=== PATIENT | female | born 1960 | race Caucasian/White ===

== ENCOUNTER → 2018-09-16 | Outpatient (CLI) | payer MEDICARE, OTHER ==
[2018-09-16 12:13] LABS: HCT 41.7 % (34.0-46.0); HGB 13.1 gm/dL (11.4-16.0); MCHC 31.4 g/dL (31.0-37.0); MCV 92.4 fL (80.0-100.0); Mean Platelet Volume 7.2; Platelet Count 290 k/uL (150-450); RBC 4.51 m/uL (3.80-5.40); RDW 13.3 % (11.5-15.5); WBC 5.5 k/uL (3.8-10.6)
[2018-09-16 13:30] LABS: Erythrocyte Sedimentation Rate 8 mm/hr (0-20)
== END ==
LOC: LABWHC1 11:24
PROVIDERS: ATTEND Otolaryngology
DX: J04.0 Acute laryngitis (principal)
CPT/HCPCS: 36415; 82607; 84443; 85027; 85652; 86038

== ENCOUNTER → 2018-11-15 | Outpatient (CLI) | payer MEDICARE, OTHER ==
[2018-11-11 15:42] VITALS: BMI 34.4
[2018-11-15 11:52] VITALS: BP 131/95; PULSE 80; RESP 16
--- NOTE | 2018-11-15 13:26 | P.PN ---
Subjective Progress Note Date: 11/15/18 Leda is a 58-year-old female presents today for follow-up review. She was last seen in our clinic about 2 and half years ago. She continues to have low back pain. She reports pain along her low back into her lower extremities. She's had a history of back surgery 1992. She reports her pain is on and off throughout the years and is getting worse more recently. Her pain is mostly across the low back and into bilateral upper thighs. She reports bilateral lower extremity weakness which is chronic in nature. 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 She does not exercise. She denies any bowel or bladder incontinence. She denies any numbness or tingling in her feet except with prolonged standing. She denies any cervical pain or any weakness in her upper extremities. She's had injections in the past with good response. She was supposed to have radiofrequency ablations but she refused at that time. Objective - Vital Signs Vital signs: Vital Signs Temp Pulse 80 11/15/18 11:45 Resp 16 11/15/18 11:45 BP 131/95 11/15/18 11:45 Pulse Ox 98 11/15/18 11:45 - Exam General: Awake and alert oriented 3 no distress Respiratory exam: No audible wheezing no accessory muscle usage Cardiovascular exam: regular rate, palpable bilateral pulses, no lower extremity edema Abdominal exam: No distention nontender to palpation Cervical spine: Normal alignment, Spurling's negative, facet loading negative Lumbar spine: Loss of lumbar lordosis, surgical scar well-healed, normal alignment, tender to palpation over bilateral paraspinal muscles, facet loading is positive bilaterally. Straight leg raise is positive bilateral. Strength is 4 out of 5 in bilateral lower extremities with decreased muscle mass and muscle bulk bilateral Sacroiliac joints: Nontender to palpation, ARIA is negative, Gaenselon negative Neuro exam: Normal sensation in bilateral upper extremities, deep tendon reflexes are 2+ bilateral upper extremities. Normal sensation in bilateral lower extremities. Deep tendon reflexes are absent in lower extremities. Randi's is negative. Psych exam: Cooperative, appropriate mood Assessment and Plan Assessment: #1 lumbar radiculopathy #2 lumbar spondylosis without myelopathy Plan: After discussion with the patient and review of her MRI. I discussed that we will would like to try a lumbar epidural steroid injection via the transforaminal route. I believe the L3-L4 level be most appropriate at this time on both sides. I discussed with her the risks benefits and alternatives to the procedures. Patient like to move forward as soon as possible.
== END ==
LOC: PNWHC3 11:40
PROVIDERS: ATTEND Hospitalist
DX: M47.26 Other spondylosis with radiculopathy, lumbar region (principal)
CPT/HCPCS: 99211

== ENCOUNTER 2018-11-28 06:19 | Day surgery (SDC) | payer MEDICARE ==
[2018-11-23 14:15] VITALS: BMI 32.9
[2018-11-28 06:40] VITALS: RESP 18; TEMP 97.5
[2018-11-28] MEDS ORDERED: LIDOCAINE 1% 20 ML VIAL (10MG/ML) FOR IV START INTRADERMA ONE (06:47)
[2018-11-28] MEDS ORDERED: LACTATED RINGERS 1,000 ML IV ONE (06:47)
--- NOTE | 2018-11-28 07:52 | P.PCN ---
Date of Procedure: 11/28/18 Procedure(s) Performed: PREOPERATIVE DIAGNOSIS: Lumbar radiculopathy. Lumbar spondylosis with lumbar facet arthropathy without myelopathy. POSTOPERATIVE DIAGNOSIS: Same as preoperative diagnosis. PROCEDURE 1. Bilateral Transforaminal epidural steroid injection under fluoroscopic guidance at L3-4 level . 2. Lumbar epidurogram : ANESTHESIA: Local with 1% lidocaine 3 ml , moderate sedation with intravenous Versed 1 mg and fentanyle 50 micrograms EBL: Minimal PROCEDURE INDICATION: The patient with low back pain and radiculopathy symptoms unresponsive to conservative treatment. PROCEDURE DESCRIPTION / TECHNIQUE: The patient was seen and identified in the preoperative area. Risks, benefits , complications, and alternatives were discussed with the patient. The patient agreed to proceed with the procedure and signed the consent. IV was started, and vital signs were stable. Patient was taken to the OR and time out was completed. The patient was placed in the prone position on procedure table and a pillow was placed under the abdomen to reduce lumbar lordosis. The lumbosacral area was prepped and draped in the usual sterile fashion. Critical pause was taken. Vital signs were closely monitored during the procedure. Conscious sedation was used during the procedure to decrease patients anxiety. Using oblique fluoroscopy, the chin of the ``Joseph dog at right L3-4 level was identified, and the skin and deeper tissues just below was localized with 1 % lidocaine. Subsequently, a 22-gauge 5 inches spinal needle was advanced under a tunneled view fluoroscopic guidance just underneath the chin of the `` Joseph dog at the right L3-4 . Under lateral fluoroscopy, the needle was then advanced to the posterior border of the L3-4 interforaminal space. After negative aspiration of CSF and blood and with no paresthesias, 1 mL Isovue 200 contrast dye was injected excellent epidurogram and outlining of the nerve root Subsequently, 3 mL of block solution containing 40 mg Depo-medrol and 2 mL of Lidocaine 1% was injected. Needle was removed and the same procedure was repeated at the left L3-4 At the end of the procedure, skin was cleansed, and bandages were applied. COMPLICATIONS:none DISPOSITION / PLANS: The patient was placed in a supine position and transferred to the recovery area in a stable condition for observation. There was no evidence of lower extremity motor or sensory deficit after the procedure. Patient was discharged from the recovery room after meeting discharge criteria. Home discharge instructions were given to the patient by the staff. The patient was reexamined prior to discharge.
[2018-11-28] MEDS ORDERED: IV FLUID CONTINUATION 1,000 ML IV ONE (07:55)
--- NOTE | 2018-11-28 08:09 | FL ---
Fluoroscopy HISTORY: Pain 8 seconds fluoroscopy time supplied to the referring clinician. 2 intraoperative C-arm images docume nt the procedure. See dictated report from anesthesia.
[2018-11-28 08:17] VITALS: BP 102/64; PULSE 78
== END 2018-11-28 08:37 | disposition home or self-care (01) ==
LOC: ORPAIN 06:19
PROVIDERS: ATTEND Specialist
DX: M47.26 Other spondylosis with radiculopathy, lumbar region (principal); Z98.1 Arthrodesis status; Z90.710 Acquired absence of both cervix and uterus; Z88.1 Allergy status to other antibiotic agents; Z88.8 Allergy status to other drugs, medicaments and biological substances
CPT/HCPCS: 64483; J2250; J1030; J3010; Q9966; 99152

== ENCOUNTER 2018-12-12 07:48 | Day surgery (SDC) | payer MEDICARE ==
[2018-12-06 11:18] VITALS: BMI 34.4
[2018-12-12 08:12] VITALS: RESP 16; TEMP 97.6
[2018-12-12] MEDS ORDERED: LACTATED RINGERS 1,000 ML IV ONE ×2 (08:16)
[2018-12-12] MEDS ORDERED: LIDOCAINE 1% 20 ML VIAL (10MG/ML) FOR IV START INTRADERMA ONE (08:17)
--- NOTE | 2018-12-12 08:20 | P.PCN ---
Date of Procedure: 12/12/18 Description of Procedure: PREOPERATIVE DIAGNOSIS: Lumbar radiculopathy. Lumbar spondylosis with lumbar facet arthropathy without myelopathy. POSTOPERATIVE DIAGNOSIS: Same as preoperative diagnosis. PROCEDURE 1. Bilateral Transforaminal epidural steroid injection under fluoroscopic guidance at L3-4 level . 2. Lumbar epidurogram : ANESTHESIA: Local with 1% lidocaine 3 ml , moderate sedation with intravenous Versed 1 mg and fentanyle 50 micrograms EBL: Minimal PROCEDURE INDICATION: The patient with low back pain and radiculopathy symptoms unresponsive to conservative treatment. PROCEDURE DESCRIPTION / TECHNIQUE: The patient was seen and identified in the preoperative area. Risks, benefits, complications, and alternatives were discussed with the patient. The patient agreed to proceed with the procedure and signed the consent. IV was started, and vital signs were stable. Patient was taken to the OR and time out was completed. The patient was placed in the prone position on procedure table and a pillow was placed under the abdomen to reduce lumbar lordosis. The lumbosacral area was prepped and draped in the usual sterile fashion. Critical pause was taken. Vital signs were closely monitored during the procedure. Conscious sedation was used during the procedure to decrease patients anxiety. Using oblique fluoroscopy, the chin of the ``Joseph dog at right L3-4 level was identified, and the skin and deeper tissues just below was localized with 1% lidocaine. Subsequently, a 22-gauge 5 inches spinal needle was advanced under a tunneled view fluoroscopic guidance just underneath the chin of the ``Joseph dog at the right L3-4 . Under lateral fluoroscopy, the needle was then advanced to the posterior border of the L3-4 interforaminal space. After negative aspiration of CSF and blood and with no paresthesias, 1 mL Isovue 200 contrast dye was injected excellent epidurogram and outlining of the nerve root Subsequently, 6 mL of block solution containing 20 mg dexamethasone and 2 mL of Lidocaine 1%, 2 ML's preservative-free normal saline. was injected. Needle was removed and the same procedure was repeated at the left L3-4 At the end of the procedure, skin was cleansed, and bandages were applied. COMPLICATIONS:none DISPOSITION / PLANS: The patient was placed in a supine position and transferred to the recovery area in a stable condition for observation. There was no evidence of lower extremity motor or sensory deficit after the procedure. Patient was discharged from the recovery room after meeting discharge criteria. Home discharge instructions were given to the patient by the staff. The patient was reexamined prior to discharge. Will present for her third transforaminal epidural steroid injection. PT prescription was given this visit.
--- NOTE | 2018-12-12 08:21 | P.GSHP ---
History of Present Illness H&P Date: 12/12/18 58-year-old woman presenting for bilateral transforaminal epidural steroid injection L3-L4. This is #23. She had relief greater than 50% with the initial 1. She still has some radicular pain down her legs bilaterally. VAS today is a 6 out of 10 in severity. Physical Exam : CVS: Regular rate and rhythm, no peripheral edema Pulmonary: Nonlabored, no wheezing Plan: 1. Transforaminal epidural steroid injection L3-L4 bilateral. 2. PT prescription given. 3. Schedule for third epidural injection in 4-6 weeks. Past Medical History Past Medical History: Cancer, Hyperlipidemia, Pneumonia Additional Past Medical History / Comment(s): HX MIGRAINES, LEFT BREAST CA VARICOSE VEINS RT LEG, pneumonia 2017, chronic lower back pain. Current rash on right lower leg. History of Any Multi-Drug Resistant Organisms: None Reported Past Surgical History: Back Surgery, Breast Surgery, Hysterectomy Additional Past Surgical History / Comment(s): LEFT MASTECTOMY 2012 WITH RADIATION. PAIN CLINIC- INJECTIONS Past Anesthesia/Blood Transfusion Reactions: Motion Sickness Additional Past Anesthesia/Blood Transfusion Reaction / Comment(s): . Smoking Status: Never smoker - Past Family History Father Family Medical History: No Reported History Additional Family Medical History / Comment(s): HYPOTHYROID FAMILY HX Mother Family Medical History: No Reported History Medications and Allergies Home Medications Medication Instructions Recorded Confirmed Type SUMAtriptan SUCCINATE [Imitrex] 100 mg PO DIRECTED PRN 01/07/15 12/12/18 History Topiramate [Topamax] 50 mg PO BID 01/07/15 12/12/18 History buPROPion SR [Wellbutrin SR] 150 mg PO DAILY 01/07/15 12/12/18 History Flaxseed Oil 1,000 mg PO DAILY 10/21/18 12/12/18 History Allergy Injection 1 dose SQ Q30D 11/23/18 12/12/18 History Allergy Injection 1 dose SQ WE 11/23/18 12/12/18 History Antianxiety Med (Unknown Name) 1 tab PO DAILY 11/23/18 12/12/18 History Antianxiety Med (Unknown Name) 1 tab PO HS 11/23/18 12/12/18 History Montelukast [Singulair] 10 mg PO HS 11/23/18 12/12/18 History Water Pill (Unknown Name) 10 mg PO DAILY 11/23/18 12/12/18 History Allergies Allergy/AdvReac Type Severity Reaction Status Date / Time Quinolones Allergy Severe Rash/Hives Verified 12/06/18 10:58 alprazolam [From Xanax] Allergy MAKES VERY Verified 12/06/18 10:58 HYPER codeine AdvReac Intermediate Nausea & Verified 12/06/18 10:58 Vomiting Surgical - Exam Vital Signs Temp Pulse Resp BP Pulse Ox 97.6 F 79 16 137/82 98 12/12/18 08:06 12/12/18 08:06 12/12/18 08:06 12/12/18 08:06 12/12/18 08:06
[2018-12-12] MEDS ORDERED: SODIUM CHLORIDE 0.9% 500 ML 500 ML IV SCH (08:30)
[2018-12-12] MEDS ORDERED: IV FLUID CONTINUATION 1,000 ML IV ONE (09:21)
[2018-12-12 09:24] VITALS: BP 105/68
[2018-12-12 09:31] VITALS: PULSE 75
--- NOTE | 2018-12-12 09:31 | FL ---
EXAMINATION TYPE: FL guided pain mgmt statistic DATE OF EXAM: 12/12/2018 CLINICAL HISTORY: Low back pain. TECHNIQUE: Fluoroscopy. COMPARISON: None. FINDINGS: Fluoroscopic guidance was provided during pain relief procedure performed by Dr. Caal . A total of 14 seconds of fluoroscopic time was utilized during the procedure and two spot images are acquired. Images acquired shows needle localization of the lumbar spine. IMPRESSION: As Above.
== END 2018-12-12 10:29 | disposition home or self-care (01) ==
LOC: ORPAIN 07:48
PROVIDERS: ATTEND Anesthesiology
DX: M47.26 Other spondylosis with radiculopathy, lumbar region (principal); M54.5 Low back pain; E78.5 Hyperlipidemia, unspecified; R21 Rash and other nonspecific skin eruption; G43.909 Migraine, unspecified, not intractable, without status migrainosus; Z85.3 Personal history of malignant neoplasm of breast; Z87.01 Personal history of pneumonia (recurrent); Z92.3 Personal history of irradiation; Z90.12 Acquired absence of left breast and nipple; Z79.899 Other long term (current) drug therapy; Z88.5 Allergy status to narcotic agent; Z88.8 Allergy status to other drugs, medicaments and biological substances
CPT/HCPCS: 64483; J2250; J1100; J3010; Q9966

== ENCOUNTER → 2018-12-26 | Day surgery (SDC) | payer MEDICARE ==
[2018-12-22 10:42] VITALS: BMI 34.4
[~2018-12-26] MED LIST: IV FLUID CONTINUATION 1,000 ML IV ONE; LACTATED RINGERS 1,000 ML IV ONE; LIDOCAINE 1% 20 ML VIAL (10MG/ML) FOR IV START SQ ONE
[2018-12-26 10:04] VITALS: RESP 16; TEMP 98
--- NOTE | 2018-12-26 10:27 | P.PCN ---
Date of Procedure: 12/26/18 Operative Findings: DESCRIPTION OF PROCEDURE(S): PREOPERATIVE DIAGNOSIS: Lumbar radiculopathy POSTOPERATIVE DIAGNOSIS: Lumbar radiculopathy PROCEDURE 1. Transforaminal epidural steroid injection under fluoroscopic guidance bilateral L3-L4 2. Lumbar epidurogram ANESTHESIA: Local with 1% lidocaine 5 ml ; Versed and fentanyl PROCEDURE INDICATION: The patient with low back pain and radiculopathy symptoms unresponsive to conservative treatment. PROCEDURE DESCRIPTION / TECHNIQUE: The patient was seen and identified in the preoperative area. Risks, benefits, complications, and alternatives were discussed with the patient. The patient agreed to proceed with the procedure and signed the consent. IV was started, and vital signs were stable. Patient was taken to the OR and time out was completed. The patient was placed in the prone position on procedure table and a pillow was placed under the abdomen to reduce lumbar lordosis. The lumbosacral area was prepped and draped in the usual sterile fashion. Vital signs were closely monitored during the procedure. Conscious sedation was used. Using oblique fluoroscopy, the chin of the ``Joseph dog at the pedicle and the skin and deeper tissues just below was localized with 1% lidocaine. Subsequently, a 22-gauge 3.5-inch spinal needle was advanced under a tunneled view fluoroscopic guidance just underneath the chin of the ``Joseph dog. Under lateral fluoroscopy, the needle was then advanced to the posterior border interforaminal space. After negative aspiration of CSF and blood and with no paresthesias, 1 mL of Omnipaque-240 contrast dye was injected excellent epidurogram. 2 ML of 0.25% ropivacaine with dexamethasone 5 ML's at each level was injected after negative aspiration. Needle was removed. COMPLICATIONS: None COMMENTS: DISPOSITION / PLANS: The patient was placed in a supine position and transferred to the recovery area in a stable condition for observation. There was no evidence of lower extremity motor or sensory deficit after the procedure. Patient was discharged from the recovery room after meeting discharge criteria. Home discharge instructions were given to the patient by the staff. F/U clinic in 6-8 weeks after PT.
[2018-12-26 10:58] VITALS: BP 105/72; PULSE 77
--- NOTE | 2018-12-26 11:48 | FL ---
Fluoroscopy HISTORY: Pain 17 seconds fluoroscopy time supplied to the referring clinician. 2 intraoperative C-arm images docum ent the procedure. See dictated report from anesthesia.
== END | disposition home or self-care (01) ==
LOC: ORPAIN 09:49
PROVIDERS: ATTEND Hospitalist
DX: M54.16 Radiculopathy, lumbar region (principal); G89.29 Other chronic pain; E78.5 Hyperlipidemia, unspecified; Z85.3 Personal history of malignant neoplasm of breast; Z87.01 Personal history of pneumonia (recurrent); Z90.12 Acquired absence of left breast and nipple; Z92.3 Personal history of irradiation; Z79.899 Other long term (current) drug therapy; Z88.5 Allergy status to narcotic agent; Z88.8 Allergy status to other drugs, medicaments and biological substances; Z88.1 Allergy status to other antibiotic agents
CPT/HCPCS: 64483; J2250; J1100; J3010; Q9966

== ENCOUNTER → 2018-12-29 | Outpatient (CLI) | payer MEDICARE ==
--- NOTE | 2018-12-29 13:56 | P.PAINPG ---
Subjective Progress Note Date: 12/29/18 There is a very pleasant 58-year-old female presents today for follow-up. She is status post 2 transforaminal epidurals at the L3 4 levels. She continues to complain of back pain and radicular symptoms down her legs. She reports that the epidurals significantly improved her pain but did not last more than a couple weeks. She complains of back pain is shooting down her legs is worse with standing for long. The time and with sitting for long periods of time. She reports after she stands for long or walks for long she has increase in radicular symptoms. As for her back pain she feels achy dull pain throughout the back that's aggravated by working. She reports she is walking a lot. She has been to physical therapy 2 times already. She is not using any medications except occasional Tylenol. She feels that the numbness in her legs does bother her but it's not causing pain the majority of the pain is in the low back. Objective - Vital Signs Vital signs: Intake & Output 12/28/18 12/29/18 12/29/18 18:59 06:59 18:59 Weight 84.822 kg - Exam General: Awake and alert oriented 3 no distress Respiratory exam: No audible wheezing no accessory muscle usage Cardiovascular exam: regular rate, palpable bilateral pulses, no lower extremity edema Abdominal exam: No distention nontender to palpation Cervical spine: Normal alignment, Spurling's negative, facet loading negative Lumbar spine: Loss of lumbar lordosis, normal alignment, tender to palpation over bilateral paraspinal muscles, facet loading is positive bilaterally. Straight leg raise is positive bilateral Sacroiliac joints: Nontender to palpation, ARIA is negative, Gaenselon negative Neuro exam: Normal sensation in bilateral upper extremities, deep tendon reflexes are 2+ bilateral upper extremities. Normal sensation in bilateral lower extremities. Deep tendon reflexes are 1+ in lower extremities Psych exam: Cooperative, appropriate mood Assessment and Plan Plan: After discussing with the patient and going over options I do believe that she had some relief from the epidurals but we will hold off on doing a third one at this time. I do feel that she'll benefit from low-dose gabapentin as well as Mobic as needed. I did discuss the medications. Advise her to take the gabapentin and a tapered dose starting with taking one pill every night for a week and then increasing to another pill every week until she is taking 3 times per day. I advised her to continue physical therapy and and really work with them to try to increase her strength. We agreed that she will follow-up in one month's time to see how she is doing. PQRS Measure Charge Sheet Measure #130: Documentation of Current Meds in Medical Chart: Patient's medications documented in chart Measure #226: Tobacco Use: Screen & Cessation Intervention: Pt not a tobacco user Measure #111: Pneumonia Vaccination: Pneumococcal vaccine administered or previously received Measure #47: Advance Care Plan: Advance care planning discussed & documented, pt chose/unable to give Measure #412: Opioid Treatment Agreement: Documented signed opioid trtmnt agreemnt min once during opioid trtmnt Measure #408: Opioid Therapy Follow-up Evaluation: Patient had f/u eval minimum every 3 months during opioid therapy Measure #317: Preventitive Care & Scrn High Bld Press & F/U: Normal blood pressure, f/u not required Measure #128: Body Mass Index (BMI) Screening & Follow-up: BMI documented ABOVE normal parameters - f/u documented Measure #131: Pain Assessment & Follow-up: Pain positive & plan documented Measure #431: Unhealthy Alcohol Use Preventative Care & Scrn: Patient not identified as an unhealthy alcohol user PQRS Narrative: Smoking Status Never smoker Do You Want the Pneumonia Yes Vaccine AT THIS TIME? Pain Intensity [Lower Back] 6 Scale Used Numeric (1 - 10) Hx Alcohol Use (MH) Yes: occasional Home Medications: Ambulatory Orders SUMAtriptan SUCCINATE [Imitrex] 100 mg PO DIRECTED PRN 01/07/15 Topiramate [Topamax] 50 mg PO BID 01/07/15 buPROPion SR [Wellbutrin SR] 150 mg PO DAILY 01/07/15 Flaxseed Oil 1,000 mg PO DAILY 10/21/18 Allergy Injection 1 dose SQ Q30D 11/23/18 Allergy Injection 1 dose SQ WE 11/23/18 Montelukast [Singulair] 10 mg PO HS 11/23/18 DULoxetine HCL [Cymbalta] 60 mg PO HS 12/22/18 Naproxen [Naprosyn] 500 mg PO Q12HR PRN 12/22/18 Torsemide [Demadex] 10 mg PO DAILY 12/22/18 Triamcinolone 0.1% Ointment [Kenalog 0.1% Ointment] 1 applic TOPICAL BID PRN 12/22/18 tiZANidine [Zanaflex] 2 mg PO Q8HR PRN 12/22/18 Controlled Substance Measures - Controlled Substance Measures Is patient prescribed a controlled substance at discharge?: Yes When asked, does pt state using other controlled substances?: No If prescribed controlled substance>3 days was MAPS reviewed?: Yes If Rx opioid, was Start Talking consent form obtained?: Yes If opioid is for acute pain is fill amount 7 days or less?: No Was information provided regarding opioid addiction?: No
== END | disposition home or self-care (01) ==
LOC: PNWHC3 12:04
PROVIDERS: ATTEND Hospitalist
DX: M54.9 Dorsalgia, unspecified (principal); Z79.891 Long term (current) use of opiate analgesic; Z98.890 Other specified postprocedural states
CPT/HCPCS: 99211

== ENCOUNTER → 2019-02-13 | Outpatient (CLI) | payer MEDICARE, OTHER ==
[2019-02-13 14:57] VITALS: BP 138/82; PULSE 86; RESP 16
--- NOTE | 2019-02-13 15:27 | P.PAINPG ---
Subjective Progress Note Date: 02/13/19 this is a follow-up visit for this 58 years old female with a chronic history of severe low back pain with radiation to the lower extremity bilaterally, patient had lumbar laminectomy surgery done several years ago, and currently she is complaining of sever low back pain, the pain is constant and increases with any activity, interfering with her quality of life, recently with done transforaminal epidural steroid injection at L3 4 bilaterally ,x3 , patient had no benefit from it, she denies any motor or sensory deficit she denies any change in bowel movement or urination, no fever or night sweats Objective - Vital Signs Vital signs: Vital Signs Temp Pulse 86 02/13/19 14:47 Resp 16 02/13/19 14:47 BP 138/82 02/13/19 14:47 Pulse Ox Intake & Output 02/12/19 02/13/19 02/13/19 18:59 06:59 18:59 Weight 83.915 kg - Exam Physical Examinations : -Constitutiona : Cooperative , not in acute distress . -HEENT : nech ; supple , no Lymphadenopathy , normal thyroid size . eyes : no ptosis , no icterus, no photophobia .. - neurologic : Cranial nerve II to XII intact , no focal neurological deffecit . -psychatric : alert , oriented X 3 , appropriate affect , intact judgment and insight . -Lymphatic : no Lymphadenopathy . - musculoskeltal : Lumber spine moter stegnth lower extremities ,thigh and legs 5/5 Right side , 5/5 Left side deep tendon reflexes : normal Knee Jerk , normal ankle Jerk positive lumber facet Loading Test Range of motion of the lumbar spine Flexion 30 degrees, extension 10 degrees strait leg raising test , positive at 30 degree Fabere test positive RT and positive LT . Sever tenderness over the Sacroiliac joint on the R and L sides Gaenslen test positive bilaterally. Seated flexion test positive bilaterally. Assessment and Plan Plan: assessment and plan= failed back surgery syndrome and lumbar area. Lumbar radiculopathy. Lumbar spondylosis with lumbar facet arthropathy. Bilateral sacroiliitis. Patient had no benefit from transforaminal epidural steroid injection at L3 4 . Currently patient had symptoms of facetogenic component of back pain, we will schedule patient to have diagnostic medial branch block lumbar area at L3 4, L4 5, L5-S1, benefits positive vertigo RFA patient given prescription refill for Neurontin 300 mg 3 times a day and Mobic 7.5 mg daily Time with Patient: Less than 30 PQRS Measure Charge Sheet Measure #130: Documentation of Current Meds in Medical Chart: Patient's medications documented in chart Measure #226: Tobacco Use: Screen & Cessation Intervention: Pt not a tobacco user Measure #111: Pneumonia Vaccination: Pneumococcal vaccine administered or previously received Measure #47: Advance Care Plan: Advance care planning discussed & documented, pt chose/unable to give Measure #412: Opioid Treatment Agreement: Documented signed opioid trtmnt agreemnt min once during opioid trtmnt Measure #408: Opioid Therapy Follow-up Evaluation: Patient had f/u eval minimum every 3 months during opioid therapy Measure #317: Preventitive Care & Scrn High Bld Press & F/U: Normal blood pressure, f/u not required Measure #128: Body Mass Index (BMI) Screening & Follow-up: BMI documented ABOVE normal parameters - f/u documented Measure #131: Pain Assessment & Follow-up: Pain positive & plan documented Measure #431: Unhealthy Alcohol Use Preventative Care & Scrn: Patient not identified as an unhealthy alcohol user PQRS Narrative: Smoking Status Never smoker Do You Want the Pneumonia No Vaccine AT THIS TIME? Narcotic Agreement Date Signed 12/29/18 Blood Pressure 138/82 Pain Intensity [Bilateral 6 Lower Back] Scale Used Numeric (1 - 10) Hx Alcohol Use (MH) Yes: occasional Home Medications: Ambulatory Orders SUMAtriptan SUCCINATE [Imitrex] 100 mg PO DIRECTED PRN 01/07/15 Topiramate [Topamax] 50 mg PO BID 01/07/15 Flaxseed Oil 1,000 mg PO DAILY 10/21/18 Allergy Injection 1 dose SQ Q30D 11/23/18 Allergy Injection 1 dose SQ WE 11/23/18 Montelukast [Singulair] 10 mg PO HS 11/23/18 DULoxetine HCL [Cymbalta] 60 mg PO HS 12/22/18 Naproxen [Naprosyn] 500 mg PO Q12HR PRN 12/22/18 Torsemide [Demadex] 10 mg PO DAILY 12/22/18 Triamcinolone 0.1% Ointment [Kenalog 0.1% Ointment] 1 applic TOPICAL BID PRN 12/22/18 tiZANidine [Zanaflex] 2 mg PO Q8HR PRN 12/22/18 Gabapentin [Neurontin] 300 mg PO TID 02/13/19 Meloxicam [Mobic] 7.5 mg PO DAILY 02/13/19 buPROPion HCL [Wellbutrin XL] 300 mg PO DAILY 02/13/19 Controlled Substance Measures - Controlled Substance Measures Is patient prescribed a controlled substance at discharge?: Yes When asked, does pt state using other controlled substances?: No If prescribed controlled substance>3 days was MAPS reviewed?: Yes If Rx opioid, was Start Talking consent form obtained?: Yes If opioid is for acute pain is fill amount 7 days or less?: No Was information provided regarding opioid addiction?: Yes
== END ==
LOC: PNWHC3 13:52
PROVIDERS: ATTEND Specialist
DX: M47.26 Other spondylosis with radiculopathy, lumbar region (principal); M46.96 Unspecified inflammatory spondylopathy, lumbar region; M46.1 Sacroiliitis, not elsewhere classified; M96.1 Postlaminectomy syndrome, not elsewhere classified; Z79.891 Long term (current) use of opiate analgesic; Z79.899 Other long term (current) drug therapy
CPT/HCPCS: 99211

== ENCOUNTER 2019-02-21 07:22 | Day surgery (SDC) | payer MEDICARE, OTHER ==
[2019-02-15 14:55] VITALS: BMI 34.4
[~2019-02-21 07:22] MED LIST changes: -IV FLUID CONTINUATION 1,000 ML IV ONE; -LACTATED RINGERS 1,000 ML IV ONE; +LACTATED RINGERS 1,000 ML IV SCH; -LIDOCAINE 1% 20 ML VIAL (10MG/ML) FOR IV START SQ ONE
[2019-02-21 07:53] VITALS: TEMP 98.2
[2019-02-21] MEDS ORDERED: LIDOCAINE 1% 20 ML VIAL (10MG/ML) FOR IV START INTRADERMA ONE (07:59)
--- NOTE | 2019-02-21 08:55 | P.PCN ---
Date of Procedure: 02/21/19 Surgeon: Bert León Pathology: none sent Condition: stable Disposition: PACU Description of Procedure: PREOPERATIVE DIAGNOSIS : 1- Lumbar spondylosis with Facet Arthropathy without myelopathy . 2- Lumber degenerative disc disease 3-lumbar postlaminectomy and fusion pain syndrome POSTOPERATIVE DIAGNOSIS: Same as above PROCEDURE: Diagnostic bilateral L2-3, L3 -4 , L4 -5 medial branch block under fluoroscopy ANESTHESIA: Local with 1% lidocaine; IV moderate conscious sedation with Versed 2 mg . EBL: Negligible COMPLICATION: None. PROCEDURE INDICATION: Chronic low back pain secondary to Facet arthropathy unresponsive to conservative treatment. PROCEDURE DESCRIPTION: the patient was seen and identified in the preop holding area , risks and benefits and possible complications of the procedure and alternatives were discussed with the patient, and the patient agreed to proceed with the procedure and signed the consent. IV was started and vital signs monitored during the procedure and fluoroscopy was used to maximize the benefit and accuracy of the needle placement, sedation was given to decrease patient anxiety, patient was taken to the procedure room and placed in prone position vital signs monitored. The patient was brought into the procedure room and placed in prone position. Skin was prepped with Chloraprep and draped in a sterile manner. Lidocaine 1% was used to numb the skin up at the target points that were chosen as follows: The L5-S1 level was not done due to the patient's lumbar fusion at this level. For the L2, L3 and L4 medial branches the target points were the connection between the transverse process and the superior to go process of L3, L4 and L5 respectively on the oblique views of fluoroscopy. I used 22-gauge 3-1/2 inch Quincke spinal needles for this procedure and after contacting bone at the target points mentioned above I injected 1 mL of a mixture of Kenalog 40 mg +5 MLS of Marcaine 0.5% PF . Patient tolerated procedure well. At the end of the procedure the needles removed and a bandage applied after the skin was cleaned the cleaning solution. patient was then taken to the recovery room in stable condition and monitored in the recovery room for 20-30 minutes and discharged home in stable condition after discharge criteria met .
[2019-02-21] MEDS ORDERED: IV FLUID CONTINUATION 750 ML IV ONE (08:59)
[2019-02-21 09:01] VITALS: RESP 18
[2019-02-21] MEDS ORDERED: fentaNYL (PF) 50 MCG/ML 2 ML AMP IV ONE (09:07)
[2019-02-21 09:32] VITALS: BP 120/64; PULSE 74
--- NOTE | 2019-02-21 09:37 | FL ---
EXAMINATION TYPE: FL guided pain mgmt statistic DATE OF EXAM: 02/21/2019 CLINICAL HISTORY: Low back pain. TECHNIQUE: Fluoroscopy. COMPARISON: None. FINDINGS: Fluoroscopic guidance was provided during pain relief procedure performed by Dr. León . A total of 9 seconds of fluoroscopic time was utilized during the procedure and two spot images are acquired. Images acquired shows needle localization at several levels in the lower lumbar spine. IMPRESSION: As Above.
== END 2019-02-21 09:40 | disposition home or self-care (01) ==
LOC: ORPAIN 07:22
PROVIDERS: ATTEND Anesthesiology
DX: G89.29 Other chronic pain (principal); M47.26 Other spondylosis with radiculopathy, lumbar region; M51.16 Intervertebral disc disorders with radiculopathy, lumbar region; M96.1 Postlaminectomy syndrome, not elsewhere classified; M46.1 Sacroiliitis, not elsewhere classified; Z79.1 Long term (current) use of non-steroidal anti-inflammatories (NSAID); Z79.899 Other long term (current) drug therapy; Z78.0 Asymptomatic menopausal state
CPT/HCPCS: 64493; 64494; 64495; J2250; J3301; J3010; 99152

== ENCOUNTER 2019-03-07 08:50 | Day surgery (SDC) | payer MEDICARE, OTHER ==
[2019-03-02 11:12] VITALS: BMI 34.4
[2019-03-07 09:08] VITALS: RESP 18; TEMP 97.8
[2019-03-07] MEDS ORDERED: LIDOCAINE 1% 20 ML VIAL (10MG/ML) FOR IV START INTRADERMA ONE (09:16)
[2019-03-07] MEDS ORDERED: LACTATED RINGERS 1,000 ML IV ONE (09:16)
[2019-03-07] MEDS ORDERED: IV FLUID CONTINUATION 800 ML IV ONE (09:54)
--- NOTE | 2019-03-07 09:55 | FL ---
EXAMINATION TYPE: FL guided pain mgmt statistic DATE OF EXAM: 03/07/2019 CLINICAL HISTORY: Low back pain. TECHNIQUE: Fluoroscopy. COMPARISON: None. FINDINGS: Fluoroscopic guidance was provided during pain relief procedure performed by Dr. Jeter . A total of 2 seconds of fluoroscopic time was utilized during the procedure and single spot fluorosc opic image is acquired. Single image acquired shows needle localization at multiple levels bilateral ly in the mid to lower lumbar spine. IMPRESSION: As Above.
[2019-03-07 10:06] VITALS: BP 110/76; PULSE 73
[2019-03-07] MEDS ORDERED: ONDANSETRON 4 MG/2 ML VIAL IVP ONE (10:12)
--- NOTE | 2019-03-07 15:08 | P.PCN ---
Date of Procedure: 03/07/19 Surgeon: Marshall Jeter Description of Procedure: PREOPERATIVE DIAGNOSIS : Lumbar spondylosis with Facet Arthropathy without myelopathy POSTOPERATIVE DIAGNOSIS: same PROCEDURE: Diagnostic lumbar medial branch block with fluoroscopy at bilateral L3 4, L4 5, L5-S1 ANESTHESIA: Local anesthetic; Versed and fentanyl Surgeon: Marshall Jeter MD PROCEDURE INDICATION: This is a very pleasant 59-year-old woman with a history of intractable low back pain who presents today for bilateral lumbar medial branch nerve blocks PROCEDURE DESCRIPTION: the patient was seen and identified in the preop holding area , risks and benefits and possible complications of the procedure and alternative were discussed with the patient, and the patient agreed to proceed with the procedure and signed the consent IV was started and vital signs monitored during the procedure and fluoroscopy was used to maximize the benefit and accuracy of the needle placement, and sedation was given to decrease patient anxiety, patient was taken to the procedure room and placed in prone position vital signs monitored in the back prepped. Under strict sterile technique using a right oblique fluoroscopy ,the junction of the transverse process and the superior articulating process of the right L3- 4 , L4- 5, and L5-S1 vertebra which corresponding to the fluoroscopy image of the eye of the Joseph dog on the block side for the medial branches and subsequently , after local infiltration of skin and subcutaneous tissues with lidocaine 1% one mL at each level ,then one 25-gauge Quincke-type needles was placed at the junction of the base of the transverse process and the superior articular process at the appropriate level, and the needle was advanced until the periosteum contacted, needle placement confirmed with AP oblique and lateral view and after appropriate needle placement confirmed, and after negative aspiration, 0.5 mL of Marcaine 0.5% mixed with 40 mg depomedrol in divided doses was injected at each level and the needle subsequently removed. This procedure was then repeated on the left side. At the end of the procedure and the needles removed and a bandage applied after the skin was cleaned the cleaning solution patient taken to recovery room in stable condition and monitors in the recovery room for 20-30 minutes and discharged home in stable condition after discharge criteria met and patient will follow up with the pain clinic in 2-4 weeks EBL: Minimal COMPLICATION: None.
== END 2019-03-07 10:29 | disposition home or self-care (01) ==
LOC: ORPAIN 08:50
PROVIDERS: ATTEND Pain Medicine Pain Medicine
DX: M47.816 Spondylosis without myelopathy or radiculopathy, lumbar region (principal); Z79.1 Long term (current) use of non-steroidal anti-inflammatories (NSAID); Z79.891 Long term (current) use of opiate analgesic; Z79.899 Other long term (current) drug therapy
CPT/HCPCS: 64493; 64494; 64495; J2250; J1030; J2405; J3010; Q9966; 99152

== ENCOUNTER 2019-04-04 09:05 | Day surgery (SDC) | payer MEDICARE, OTHER ==
[2019-03-17 13:27] VITALS: BMI 34.4
[2019-04-04 09:22] VITALS: TEMP 97.8
[2019-04-04] MEDS ORDERED: LIDOCAINE 1% 20 ML VIAL (10MG/ML) FOR IV START INTRADERMA ONE (09:27)
--- NOTE | 2019-04-04 10:14 | P.PCN ---
Date of Procedure: 04/04/19 Procedure(s) Performed: PREOPERATIVE DIAGNOSIS: 1-Lumbar Spondylosis with Facet Arthropathy without myelopathy. 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 2-failed back surgery syndrome lumbar area PROCEDURES : Right Radiofrequency thermocoagulation L2-3 , L3-L4, L4-L5, medial branch, with fluoroscopic guidance. ANESTHESIA: Moderate sedation with intravenous versed 2 mg ,and fentaneyl 100 mcg. EBL: Minimal PROCEDURE INDICATION: The patient with low back pain secondary to lumbar facet arthropathy who had more than 50% relief of her pain with previous diagnostic lumbar medial branch block with bupivacaine. PROCEDURE DESCRIPTION / TECHNIQUE: The patient was seen and identified in the preoperative area. Risks, benefits, complications, including but not limited to risk of infection ,bleeding , allergic reactions to the medications and no complete pain releife , and alternatives were discussed with the patient, the patient agreed to proceed with the procedure and signed the consent. IV was started. Vital signs remained stable throughout the procedure. Patient was taken to the OR and time out was completed. The patient was placed in the prone position on the procedure table. The lumber area was prepped and draped in the usual sterile fashion. . Vital signs were closely monitored during the procedure .IV sedation was used during the procedure to decrease patients anxiety. Using AP and then oblique fluoroscopy, the ``eye of the Joseph dog corresponding to the connection between the superior and transverse articular processes of right L3, L4, and L5 were identified, marked, and localized with 1% lidocaine. Subsequently, a 18 -ek radiofrequency cannula with a 10- mm active tip was advanced guided by fluoroscopy to each of the``eyes of the Joseph dog at right L2 , L3, L4 . Each site then underwent sensory testing at 50 Hz and 0 to 1 volt and motor testing at 2.5 Hz and 0 to 3 volt with local stimulation, but no radicular symptoms down the legs. Thereafter the right L2-3 , L3-4, L4-5, sites underwent radiofrequency thermocoagulation at 80 degrees celsius for 90 seconds after injecting 0.5 ml of PF Ropivacaine 1ml, then after the thermocoagulation done , 1 ml of the block solution containing Depo-Medrol 40 mg and 3 ml of Ropivacaine 0.5% was injected at the right L3-4 , L4-5 , and L5-S1, levels after negative aspiration of CSF and blood and with no paresthesias. Cannulas were retracted while injecting lidocaine 1% until the needle is out. At the end of the procedure, the skin was cleansed and bandages were applied. COMPLICATIONS: No acute complications. DISPOSITION / PLANS: The patient was placed in a supine position and transferred to the recovery area in a stable condition for observation and was discharged from the recovery room after meeting discharge criteria. Home discharge instructions given to the patient by the staff. The patient was reexamined prior to discharge. The patient will schedule a follow up in the [facility] in 2-4 weeks. note = patient had a fusion ,and bone graft at L5-S1, for this reason it was not done.
[2019-04-04] MEDS ORDERED: IV FLUID CONTINUATION 1,000 ML IV ONE (10:16)
[2019-04-04 10:56] VITALS: BP 123/78; PULSE 68; RESP 18
--- NOTE | 2019-04-04 11:03 | FL ---
EXAMINATION TYPE: FL guided pain mgmt statistic DATE OF EXAM: 04/04/2019 FLUOROSCOPY Fluoroscopy time of 13 seconds was used during lumbar radiofrequency ablation. 3 image/s document/s the procedure.
== END 2019-04-04 10:56 | disposition home or self-care (01) ==
LOC: ORPAIN 09:05
PROVIDERS: ATTEND Specialist
DX: M47.20 Other spondylosis with radiculopathy, site unspecified (principal); M96.1 Postlaminectomy syndrome, not elsewhere classified; Z98.1 Arthrodesis status; Z88.5 Allergy status to narcotic agent; Z88.8 Allergy status to other drugs, medicaments and biological substances; Z90.710 Acquired absence of both cervix and uterus
CPT/HCPCS: 64635; 64636 ×2; J2250; J1030; J3010; 99152; 99153

== ENCOUNTER 2019-04-18 09:07 | Day surgery (SDC) | payer MEDICARE, OTHER ==
[2019-04-13 12:05] VITALS: BMI 34.4
[2019-04-18 10:59] VITALS: TEMP 98.1
[2019-04-18] MEDS ORDERED: LIDOCAINE 1% 20 ML VIAL (10MG/ML) FOR IV START INTRADERMA ONE (11:07)
[2019-04-18] MEDS ORDERED: IV FLUID CONTINUATION 1,000 ML IV ONE (12:20)
--- NOTE | 2019-04-18 12:24 | P.PCN ---
Date of Procedure: 04/18/19 Procedure(s) Performed: PREOPERATIVE DIAGNOSIS: Lumbar Spondylosis POSTOPERATIVE DIAGNOSIS: Same PROCEDURES: Radiofrequency ablation of the L2, L3, L4 medial branches with fluoroscopic guidance (for facet joints L3-4 and L4-5) on the left side SURGEON: Yg Naidu MD. ANESTHESIA: Lidocaine 1% 5 mL, Moderate sedation with intravenous Versed and fentanyl EBL: Minimal Fluoroscopy was used for the procedure and images were saved in the radiology portion of the chart. PROCEDURE INDICATION: The patient with low back pain secondary to lumbar facet arthropathy who had more than 50% relief of pain with previous diagnostic lumbar medial branch block X2. PROCEDURE DESCRIPTION / TECHNIQUE: The patient was seen and identified in the preoperative area. Risks, benefits, complications, including but not limited to risk of infection ,bleeding , allergic reactions to the medications and incomplete pain relief , and alternatives were discussed with the patient, the patient agreed to proceed with the procedure and signed the consent. IV was started. The operative site was marked. Patient was taken to the OR and time out was completed. The patient was placed in the prone position on the procedure table. The lumbar area was prepped and draped in the usual sterile fashion. . Vital signs were closely monitored during the procedure .IV sedation was used during the procedure to decrease patients anxiety. Using AP and then oblique fluoroscopy, the ``eye of the Joseph dog' corresponding to the connection between the superior and transverse articular processes of the L2, L3, L4 were identified, marked, and localized with 1% lidocaine. Subsequently, an 18 guage[100-mm] radiofrequency cannula with a 10- mm active tip was advanced guided by fluoroscopy to the identified target at each site. Needle positioning was confirmed on AP, oblique and lateral fluoroscopy. Motor testing at 2.5 Hz was done with paraspinal muscle stimulation only, and no radicular symptoms down the legs. Then 1 mL of 4% lidocaine was injected in each site. Radiofrequency thermocoagulation at 80 degrees celsius for 90 seconds was then performed. [place] were removed. Sterile dressings were applied. COMPLICATIONS: No acute complications. DISPOSITION / PLANS: The patient was placed in a supine position and transferred to the recovery area in a stable condition for observation and was discharged from the recovery room after meeting discharge criteria. Home discharge instructions given to the patient by the staff. The patient will follow up in clinic in 4 weeks.
[2019-04-18 12:28] VITALS: RESP 15
[2019-04-18 12:45] VITALS: BP 116/55; PULSE 72
--- NOTE | 2019-04-18 13:55 | FL ---
EXAMINATION TYPE: FL guided pain mgmt statistic DATE OF EXAM: 04/18/2019 CLINICAL HISTORY: Low back pain. TECHNIQUE: Fluoroscopy. COMPARISON: None. FINDINGS: Fluoroscopic guidance was provided during pain relief procedure performed by Dr. Naidu. A t otal of 30 seconds of fluoroscopic time was utilized during the procedure and 9 spot images are acqui red. Images acquired shows needle localization at multiple levels in the lumbar spine. IMPRESSION: As Above.
== END 2019-04-18 12:51 | disposition home or self-care (01) ==
LOC: ORPAIN 09:07
PROVIDERS: ATTEND Anesthesiology
DX: M47.816 Spondylosis without myelopathy or radiculopathy, lumbar region (principal)
CPT/HCPCS: 64635; 64636; J2250; J3010; 99152; 99153

== ENCOUNTER → 2019-05-16 | Outpatient (CLI) | payer MEDICARE, OTHER ==
[2019-05-16 12:05] VITALS: BP 116/83; RESP 16
--- NOTE | 2019-05-17 08:57 | P.PAINPG ---
Subjective Progress Note Date: 05/16/19 this is a follow-up visit for this 58 years old female with a chronic history of severe low back pain with radiation to the lower extremity bilaterally, she is diagnosed with failed back surgery syndrome and lumbar area, and lumbar spondylosis with lumbar facet arthropathy , recently we have done radiofrequency ablation of the medial branch lumbar area at L2, L3, L4, (she had fusion at L5- S1 ) , [facility] complaining of severe pain and bilateral buttock pain, increased with any activity, she denies any motor or sensory deficit she denies any change in bowel movement or urination, no fever or night sweats Physical Examinations : -Constitutiona : Cooperative , not in acute distress . -HEENT : nech ; supple , no Lymphadenopathy , normal thyroid size . eyes : no ptosis , no icterus, no photophobia .. - neurologic : Cranial nerve II to XII intact , no focal neurological deffecit . -psychatric : alert , oriented X 3 , appropriate affect , intact judgment and insight . -Lymphatic : no Lymphadenopathy . - musculoskeltal : Lumber spine moter stegnth lower extremities ,thigh and legs 5/5 Right side , 5/5 Left side deep tendon reflexes : normal Knee Jerk , normal ankle Jerk positive lumber facet Loading Test Range of motion of the lumbar spine Flexion 30 degrees, extension 10 degrees strait leg raising test , positive at 30 degree Fabere test positive RT and positive LT . Sever tenderness over the Sacroiliac joint on the R and L sides Ga[place] test positive bilaterally. Seated flexion test positive bilaterally. assessment and plan= failed back surgery syndrome and lumbar area. Lumbar radiculopathy. Lumbar spondylosis with lumbar facet arthropathy. Bilateral sacroiliitis. Status post radiofrequency ablation of the medial branch lumbar area at L2, L3 ,L4 bilaterally Currently most of the pain is coming from the sacroiliitis patient could benefit from bilateral sacroiliac joint steroid injections under fluoroscopy guidance, procedure risk and benefits and alternatives discussed with the patient she agreed with the procedure patient given prescription refill for Neurontin 300 mg 3 times a day and Mobic 7.5 mg day Objective - Vital Signs Vital signs: Vital Signs Temp Pulse Resp 16 05/16/19 11:40 BP 116/83 05/16/19 11:40 Pulse Ox Intake & Output 05/16/19 05/17/19 05/17/19 18:59 06:59 18:59 Weight 84.822 kg PQRS Measure Charge Sheet Measure #130: Documentation of Current Meds in Medical Chart: Patient's medications documented in chart Measure #226: Tobacco Use: Screen & Cessation Intervention: Pt not a tobacco user Measure #111: Pneumonia Vaccination: Pneumococcal vaccine administered or previously received Measure #47: Advance Care Plan: Advance care planning discussed & documented, pt chose/unable to give Measure #412: Opioid Treatment Agreement: Documented signed opioid trtmnt agreemnt min once during opioid trtmnt Measure #408: Opioid Therapy Follow-up Evaluation: Patient had f/u eval minimum every 3 months during opioid therapy Measure #317: Preventitive Care & Scrn High Bld Press & F/U: Normal blood pressure, f/u not required Measure #128: Body Mass Index (BMI) Screening & Follow-up: BMI documented ABOVE normal parameters - f/u documented Measure #131: Pain Assessment & Follow-up: Pain positive & plan documented, Follow-up scheduled Measure #431: Unhealthy Alcohol Use Preventative Care & Scrn: Patient not identified as an unhealthy alcohol user PQRS Narrative: Smoking Status Never smoker Narcotic Agreement Date Signed 12/29/18 Blood Pressure 116/83 Pain Intensity [Bilateral 8 Lower Back] Scale Used Numeric (1 - 10) Hx Alcohol Use (MH) Yes: occasional Home Medications: Ambulatory Orders SUMAtriptan SUCCINATE [Imitrex] 100 mg PO BID PRN 01/07/15 Topiramate [Topamax] 50 mg PO BID 01/07/15 Flaxseed Oil 1,000 mg PO DAILY 10/21/18 Allergy Injection 1 dose SQ Q30D 11/23/18 Allergy Injection 1 dose SQ WE 11/23/18 Montelukast [Singulair] 10 mg PO HS 11/23/18 DULoxetine HCL [Cymbalta] 60 mg PO HS 12/22/18 Torsemide [Demadex] 10 mg PO DAILY 12/22/18 Triamcinolone 0.1% Ointment [Kenalog 0.1% Ointment] 1 applic TOPICAL BID PRN 12/22/18 tiZANidine [Zanaflex] 2 mg PO Q8HR PRN 12/22/18 Gabapentin [Neurontin] 300 mg PO TID 02/13/19 Meloxicam [Mobic] 7.5 mg PO DAILY 02/13/19 buPROPion HCL [Wellbutrin XL] 300 mg PO DAILY 02/13/19 Meloxicam [Mobic] 1 tab PO DAILY 05/16/19 Controlled Substance Measures - Controlled Substance Measures Is patient prescribed a controlled substance at discharge?: Yes When asked, does pt state using other controlled substances?: No If prescribed controlled substance>3 days was MAPS reviewed?: Yes If Rx opioid, was Start Talking consent form obtained?: Yes If opioid is for acute pain is fill amount 7 days or less?: No Was information provided regarding opioid addiction?: Yes
== END | disposition home or self-care (01) ==
LOC: PNWHC3 11:34
PROVIDERS: ATTEND Specialist
DX: G89.29 Other chronic pain (principal); M96.1 Postlaminectomy syndrome, not elsewhere classified; M47.26 Other spondylosis with radiculopathy, lumbar region; M46.96 Unspecified inflammatory spondylopathy, lumbar region; M46.1 Sacroiliitis, not elsewhere classified; Z98.1 Arthrodesis status; Z98.890 Other specified postprocedural states; Z79.1 Long term (current) use of non-steroidal anti-inflammatories (NSAID); Z79.899 Other long term (current) drug therapy
CPT/HCPCS: 99211

== ENCOUNTER 2019-05-18 07:12 | Day surgery (SDC) | payer MEDICARE, OTHER ==
[2019-05-18 07:54] VITALS: RESP 18; TEMP 98.8
[2019-05-18] MEDS ORDERED: LACTATED RINGERS 1,000 ML IV ONE (08:07)
--- NOTE | 2019-05-18 08:49 | P.PCN ---
Date of Procedure: 05/18/19 Procedure(s) Performed: Procedure= bilateral sacral iliac joints steroid injection under fluoroscopy guidance (fluoroscopy image stored on file in the radiology Department ) Preoperative diagnosis= 1-bilateral sacroiliitis 2-lumbar degenerative disc disease 3-lumbar facet arthropathy Postoperative diagnosis=1-bilateral sacroiliitis 2-lumbar degenerative disc disease 3-lumbar facet arthropathy Complication = none Condition= stable Anesthesia= moderate sedation with intravenous Versed 1 mg , and fentanyl 50 micrograms and local infiltration with lidocaine 1% 5 mL Indication for the procedure= patient complaining of low back pain , examination was positive for severe tenderness over the sacroiliac joints bilaterally and patient diagnosed with sacroiliitis, for this reason he/ she was good candidate for sacroiliac joint steroid injection. Description of the procedure= procedure risk and benefits discussed with the patient, including but not limited, risk of infection and bleeding, and ALLERGIC reaction to the medication and not complete pain relief and patient agreed with the preceding patient taken to the operating room, placed in prone position or standard monitors applied to the patient then after induction of anesthesia back prepped with chlorhexidine 3 times , Then under strict sterile technique, first I did the right sacroiliac joint the which was identified under fluoroscopy guidance been local infiltration of the skin and subcu interstitial with lidocaine 1% then 22-gauge Quincke Needle advanced slowly under fluoroscopy and placed in the right sacroiliac joint needle placement confirmed with AP and oblique and lateral view and after appropriate needle placement confirmed and after negative aspiration, or heme , then Ropivacaine 0.5% 3 mL, and 40 mg of Depo-Medrol mixed together and injected in the right sacroiliac joint after negative aspiration patient tolerated the procedure well without any complication. Then the left sacroiliac joint steroid injection done under strict sterile technique local infiltration of the skin and subcu interstitial at the location of the left sacroiliac joint then a 22-gauge Quincke Needle advanced slowly under fluoroscopy time placed in the left sacroiliac joint, needle placement confirmed with AP and oblique and lateral view then after appropriate needle placement confirmed and after negative aspiration 0.5% Marcaine 3 mL and 40 mg of Depo-Medrol injected in the left sacroiliac joint after negative aspiration patient tolerated the procedure well that any complications and she will follow up in clinic 3 weeks
[2019-05-18] MEDS ORDERED: IV FLUID CONTINUATION 1,000 ML IV ONE (08:52)
--- NOTE | 2019-05-18 09:02 | FL ---
EXAMINATION TYPE: FL guided pain mgmt statistic DATE OF EXAM: 05/18/2019 CLINICAL HISTORY: Bilateral sacroiliac joint pain. TECHNIQUE: Fluoroscopy. COMPARISON: None. FINDINGS: Fluoroscopic guidance was provided during pain relief procedure performed by Dr. Cabrera . A total of 4 seconds of fluoroscopic time was utilized during the procedure and two spot images ar e acquired. Images acquired shows needle localization at the level of bilateral sacroiliac joints. IMPRESSION: As Above.
[2019-05-18 09:09] VITALS: BP 110/78; PULSE 67
== END 2019-05-18 09:25 | disposition home or self-care (01) ==
LOC: ORPAIN 07:12
PROVIDERS: ATTEND Specialist
DX: M46.1 Sacroiliitis, not elsewhere classified (principal); M51.36 Other intervertebral disc degeneration, lumbar region; M47.816 Spondylosis without myelopathy or radiculopathy, lumbar region; Z90.710 Acquired absence of both cervix and uterus; Z88.5 Allergy status to narcotic agent; Z88.8 Allergy status to other drugs, medicaments and biological substances; Z88.1 Allergy status to other antibiotic agents
CPT/HCPCS: G0260; J2250; J1030; J3010; 99152

== ENCOUNTER 2019-06-01 07:34 | Day surgery (SDC) | payer MEDICARE, OTHER ==
[2019-05-25 13:05] VITALS: BMI 34.2
[2019-06-01 08:39] VITALS: RESP 16; TEMP 97.6
[2019-06-01] MEDS ORDERED: LIDOCAINE 1% 20 ML VIAL (10MG/ML) FOR IV START INTRADERMA ONE (08:52)
[2019-06-01] MEDS ORDERED: IV FLUID CONTINUATION 1,000 ML IV ONE (10:01)
[2019-06-01] MEDS ORDERED: ONDANSETRON 4 MG/2 ML VIAL IVP ONE (10:01)
--- NOTE | 2019-06-01 10:06 | FL ---
EXAMINATION TYPE: FL guided pain mgmt statistic DATE OF EXAM: 06/01/2019 HISTORY: Steroid injection Dr. Naidu supervised use of tavo for a lt side si joint steroid inj fl time 10 secs paper images
[2019-06-01 10:08] LABS: Glucose,Whole Blood 118 mg/dL (75-99)
[2019-06-01 10:21] VITALS: BP 120/80; PULSE 75
[2019-06-01] MEDS ORDERED: DEXAMETHASONE SOD PHOSPHATE 10 MG/ML 1 ML VIAL IV ONE (10:30)
--- NOTE | 2019-06-01 10:55 | P.PCN ---
Date of Procedure: 06/01/19 Procedure(s) Performed: Preoperative diagnoses: left sacroilitis Postoperative diagnoses: left sacroilitis. Procedure: left sacroiliac joint steroid injection under fluoroscopic guidance. Surgeon: Yg Naidu MD Anesthesia: 2 mL of 1% lidocaine and IV sedation with Versed and fentanyl Fluoroscopy was used for the procedure and fluoroscopic images were saved to the radiology portion of the patient's chart. EBL: None Procedure indication: The patient had a history of severe chronic low back pain, diagnosed with sacroiliitis unresponsive to conservative treatment. Procedure description: The patient was seen and identified in the preoperative holding area, risks and benefits and alternative of the procedure and possible complications discussed with the patient, and patient agreed with the preceding, patient signed the consent, an IV was started, and vital signs were monitored and were stable throughout the procedure, patient was placed in the prone position on table and the lumbosacral area was prepped and draped with a sterile fashion, vital signs were closely monitored during the procedure, the fluoroscopy camera was placed in the contralateral oblique view on the left sacroiliac joint and the lower part of the joint was identified . Then the skin and subcutaneous tissue was anesthetized using 2 mL of 1% lidocaine then a 22- gauge Quincke-type spinal needle advanced slowly under fluoroscopy and placed in the posterior and inferior border of the left sacroiliac joint, placement confirmed with AP and lateral view, and after appropriate needle placement confirmed and after negative aspiration for heme, 1 mL of Isovue 200 was injected revealing intra-articular spread. Then a solution consisting of 2 ml of ropivacaine 0.5% and 40 mg of Kenalog injected after negative aspiration, no paresthesia during the injection, no resistance to injection, and the needle was removed. Patient tolerated the procedure well without any complication. The patient was returned to supine position after the back was cleaned and a Band-Aid applied, the patient was transported to recovery room in stable condition and monitored for 30 minutes before being discharged home. The patient will follow up with the pain clinic in a few weeks
== END 2019-06-01 11:09 | disposition home or self-care (01) ==
LOC: ORPAIN 07:34
PROVIDERS: ATTEND Anesthesiology
DX: G89.29 Other chronic pain (principal); M46.1 Sacroiliitis, not elsewhere classified; M96.1 Postlaminectomy syndrome, not elsewhere classified; M47.26 Other spondylosis with radiculopathy, lumbar region; Z79.1 Long term (current) use of non-steroidal anti-inflammatories (NSAID); Z79.899 Other long term (current) drug therapy
CPT/HCPCS: G0260; J2250; J1100; J3301; J2405; J3010; Q9966; 27096; 99152

== ENCOUNTER → 2019-07-04 | Outpatient (CLI) | payer MEDICARE, OTHER ==
[2019-07-04 14:36] VITALS: BP 118/85; PULSE 92; RESP 16
--- NOTE | 2019-07-04 15:39 | P.PAINPG ---
Subjective Progress Note Date: 07/04/19 This is a 59-year-old female who presents for follow-up after left SI joint injection. In the past she has received bilateral SI joint injections with good relief. However at the last procedure she was only complaining of pain on the left SI joint thus only a left SI joint injection was performed. Today she states that her pain on the left side has resolved, however her pain on the right side has come back. Thus she would like to have her right side SI joint injection. She does also some neck pain and has been followed in our clinic in the past, however I told her that this would be discussed in the future. Objective - Vital Signs Vital signs: Vital Signs Temp Pulse 92 07/04/19 13:56 Resp 16 07/04/19 13:56 BP 118/85 07/04/19 13:56 Pulse Ox 96 07/04/19 13:56 - Exam Vital Signs: Reviewed in EMR GENERAL: Well appearing, in no acute distress, PSYCH: Mood and affect is appropriate. Awake, alert, and oriented SKIN: Skin color, texture, turgor normal, no rashes or lesions HEENT: Normocephalic, atraumatic. EOM intact CV: No pedal edema RESP: Respirations are unlabored, no audible wheezing GI: Abdomen non-distended MUSCULOSKELETAL: Bilateral upper and lower extremity strength is normal and symmetric. No atrophy or tone abnormalities are noted. Buttocks: Pain to palpation in the right PSIS, she has a positive Maggie's [place] and [place] signed. Extremities: Peripheral joint ROM is full and pain free without obvious instability or laxity in all four extremities. No edema or skin discolorations noted. Gait: Gait is anantalgic NEUR: No loss of sensation is noted. Cranial nerves are grossly intact. Assessment and Plan Assessment: Assessment: 1. SI joint dysfunction, bilateral 2. Cervical spondylosis Plan: 1. Explanation: Splinting to her the nature of her pain 2. Opioid agreement: None 3. Counseling: The patient was counseled extensively on BODY MASS INDEX, EXERCISE. Specifically, the patient was instructed regarding the importance of weight control, and exercise in the context of both chronic pain and overall health. 4. Procedures: A SI joint injection 5. Consultations: None 6. Investigations: Reviewed 7. Medications: Refilled her gabapentin and mobic 8. Disposition: For right SI joint injection , PQRS Measure Charge Sheet Measure #226: Tobacco Use: Screen & Cessation Intervention: Pt not a tobacco user Measure #111: Pneumonia Vaccination: Pneumococcal vaccine administered or previously received Measure #47: Advance Care Plan: Advance care planning discussed & documented, pt chose/unable to give Measure #412: Opioid Treatment Agreement: Documented signed opioid trtmnt agreemnt min once during opioid trtmnt Measure #408: Opioid Therapy Follow-up Evaluation: Patient had f/u eval minimum every 3 months during opioid therapy Measure #131: Pain Assessment & Follow-up: Pain positive & plan documented, Follow-up scheduled Measure #431: Unhealthy Alcohol Use Preventative Care & Scrn: Patient not identified as an unhealthy alcohol user PQRS Narrative: Smoking Status Never smoker Narcotic Agreement Date Signed 12/29/18 Blood Pressure 118/85 Pain Intensity [Right Lower 7 Back] Scale Used Numeric (1 - 10) Hx Alcohol Use (MH) Yes: occasional Home Medications: Ambulatory Orders SUMAtriptan SUCCINATE [Imitrex] 100 mg PO BID PRN 01/07/15 Topiramate [Topamax] 50 mg PO BID 01/07/15 Flaxseed Oil 1,000 mg PO DAILY 10/21/18 Allergy Injection 1 dose SQ Q30D 11/23/18 Allergy Injection 1 dose SQ WE 11/23/18 Montelukast [Singulair] 10 mg PO HS 11/23/18 DULoxetine HCL [Cymbalta] 60 mg PO HS 12/22/18 Torsemide [Demadex] 10 mg PO DAILY 12/22/18 Triamcinolone 0.1% Ointment [Kenalog 0.1% Ointment] 1 applic TOPICAL BID PRN 12/22/18 tiZANidine [Zanaflex] 2 mg PO Q8HR PRN 12/22/18 Gabapentin [Neurontin] 300 mg PO TID 02/13/19 Meloxicam [Mobic] 7.5 mg PO DAILY 02/13/19 buPROPion HCL [Wellbutrin XL] 300 mg PO DAILY 02/13/19 Controlled Substance Measures - Controlled Substance Measures Is patient prescribed a controlled substance at discharge?: No
== END | disposition home or self-care (01) ==
LOC: PNWHC3 12:35
PROVIDERS: ATTEND Student in an Organized Health Care Education/Training Program
DX: M53.3 Sacrococcygeal disorders, not elsewhere classified (principal); M47.812 Spondylosis without myelopathy or radiculopathy, cervical region; Z79.1 Long term (current) use of non-steroidal anti-inflammatories (NSAID); Z79.899 Other long term (current) drug therapy
CPT/HCPCS: 99211

== ENCOUNTER 2019-07-18 09:06 | Day surgery (SDC) | payer MEDICARE, OTHER ==
[2019-07-14 12:18] VITALS: BMI 34.2
[2019-07-18] MEDS ORDERED: LIDOCAINE 1% 20 ML VIAL (10MG/ML) FOR IV START INTRADERMA ONE (09:25)
[2019-07-18 09:29] VITALS: TEMP 98.1
--- NOTE | 2019-07-18 10:03 | P.PCN ---
Date of Procedure: 07/18/19 Procedure(s) Performed: Procedure= bilateral sacral iliac joints steroid injection under fluoroscopy guidance (fluoroscopy image stored on file in the radiology Department ) Preoperative diagnosis= 1-sacroiliitis 2-sacroiliac joint dysfunction 3- lumbar facet arthropathy Postoperative diagnosis=1-sacroiliitis 2-sacroiliac joint dysfunction 3-lumbar facet arthropathy Complication = none Condition= stable Fluoroscopy time = seconds Anesthesia= moderate sedation with intravenous Versed 2 mg , and fentanyl 50 micrograms and local infiltration with lidocaine 1% 5 mL Indication for the procedure= patient complaining of low back pain , examination was positive for severe tenderness over the sacroiliac joints bilaterally and patient diagnosed with sacroiliitis, for this reason he/ she was good candidate for sacroiliac joint steroid injection. Description of the procedure= procedure risk and benefits discussed with the patient, including but not limited, risk of infection and bleeding, and ALLERGIC reaction to the medication and not complete pain relief and patient agreed with the preceding patient taken to the operating room, placed in prone position or standard monitors applied to the patient then after induction of anesthesia back prepped with chlorhexidine 3 times , Then under strict sterile technique, I did the right sacroiliac joint the which was identified under fluoroscopy guidance been local infiltration of the skin and subcu interstitial with lidocaine 1% then 22-gauge [place]ke Needle advanced slowly under fluoroscopy and placed in the right sacroiliac joint needle placement confirmed with AP and oblique and lateral view and after appropriate needle placement confirmed and after negative aspiration, or heme , then Ropivacaine 0.5% 3 mL, and 40 mg of Depo-Medrol mixed together and injected in the right sacroiliac joint after negative aspiration patient tolerated the procedure well without any complication.
[2019-07-18] MEDS ORDERED: IV FLUID CONTINUATION 1,000 ML IV ONE (10:14)
[2019-07-18 10:17] VITALS: RESP 18
[2019-07-18 10:31] VITALS: BP 113/67; PULSE 80
--- NOTE | 2019-07-18 13:10 | FL ---
Fluoroscopy HISTORY: Pain 1 seconds fluoroscopy time supplied to the referring clinician. 1 intraoperative C-arm images docume nt the procedure. See dictated report from anesthesia.
== END 2019-07-18 10:47 | disposition home or self-care (01) ==
LOC: ORPAIN 09:06
PROVIDERS: ATTEND Specialist
DX: M46.1 Sacroiliitis, not elsewhere classified (principal); M53.3 Sacrococcygeal disorders, not elsewhere classified; M47.816 Spondylosis without myelopathy or radiculopathy, lumbar region; Z88.5 Allergy status to narcotic agent; Z88.1 Allergy status to other antibiotic agents; Z88.8 Allergy status to other drugs, medicaments and biological substances
CPT/HCPCS: J2250; J1030; J3010; G0260; 27096

== ENCOUNTER → 2019-08-02 | Outpatient (CLI) | payer MEDICARE, OTHER ==
[2019-08-02 14:21] VITALS: BP 133/86; PULSE 74; RESP 16
--- NOTE | 2019-08-02 19:00 | P.PAINPG ---
Subjective Progress Note Date: 08/02/19 This is a pleasant 5-year-old female who presents for follow-up after her SI joint injection on the right side. She is very happy with the results of the SI joint injection, however now her main pain is her neck. That she has had a cervical RFA years ago and has had good results with that and would like a repeat cervical RFA. Twisting and turning make her pain worse. She does also have pain in the musculature in her upper thoracic area. Objective - Vital Signs Vital signs: Vital Signs Temp Pulse 74 08/02/19 14:12 Resp 16 08/02/19 14:12 BP 133/86 08/02/19 14:12 Pulse Ox 95 08/02/19 14:12 - Exam Vital Signs: Reviewed in EMR GENERAL: Well appearing, in no acute distress, PSYCH: Mood and affect is appropriate. Awake, alert, and oriented SKIN: Skin color, texture, turgor normal, no rashes or lesions HEENT: Normocephalic, atraumatic. EOM intact CV: No pedal edema RESP: Respirations are unlabored, no audible wheezing GI: Abdomen non-distended MUSCULOSKELETAL: Bilateral upper and lower extremity strength is normal and symmetric. No atrophy or tone abnormalities are noted. Neck: Pain to palpation over cervical paraspinals. Cervical facet loading causes her pain. She does have tenderness to the musculature in the neck region including the cervical paraspinals, trapezius, and rhomboids Extremities: Peripheral joint ROM is full and pain free without obvious instability or laxity in all four extremities. No edema or skin discolorations noted. Gait: Gait is anantalgic NEUR:No loss of sensation is noted. Cranial nerves are grossly intact. Assessment and Plan Assessment: Assessment: 1. Cervical spondylosis 2. Myofascial pain 3. SI joint dysfunction Plan: 1. Explanation: I explained to her that we will need further imaging before proceeding with a cervical medial branch RFA workup. In the interim we would be able to relieve some of her myofascial pain with trigger point injections 2. Opioid agreement: None 3. Counseling: The patient was counseled extensively on BODY MASS INDEX, EXERCISE. Specifically, the patient was instructed regarding the importance of weight control, and exercise in the context of both chronic pain and overall health. 4. Procedures: Trigger point injections of the bilateral cervical paraspinals, trapezius, 5. Consultations: None 6. Investigations: Or MRI, after this we'll consider cervical medial branch workup 7. Medications: per primary doctor 8. Disposition: For her trigger point injections, after the MRI we'll consider cervical medial branch RFA workup , PQRS Measure Charge Sheet Measure #226: Tobacco Use: Screen & Cessation Intervention: Pt not a tobacco user Measure #111: Pneumonia Vaccination: Pneumococcal vaccine administered or previously received Measure #47: Advance Care Plan: Advance care planning discussed & documented, pt chose/unable to give Measure #412: Opioid Treatment Agreement: Documented signed opioid trtmnt agreemnt min once during opioid trtmnt Measure #131: Pain Assessment & Follow-up: Pain positive & plan documented, Follow-up scheduled Measure #431: Unhealthy Alcohol Use Preventative Care & Scrn: Patient not identified as an unhealthy alcohol user PQRS Narrative: Smoking Status Never smoker Narcotic Agreement Date Signed 12/29/18 Blood Pressure 133/86 Pain Intensity [Neck] 8 Pain Intensity [Back] 3 Scale Used Numeric (1 - 10) Hx Alcohol Use (MH) Yes: occasional Home Medications: Ambulatory Orders SUMAtriptan SUCCINATE [Imitrex] 100 mg PO BID PRN 01/07/15 Topiramate [Topamax] 50 mg PO BID 01/07/15 Flaxseed Oil 1,000 mg PO DAILY 10/21/18 Allergy Injection 1 dose SQ Q30D 11/23/18 Allergy Injection 1 dose SQ WE 11/23/18 Montelukast [Singulair] 10 mg PO HS 11/23/18 DULoxetine HCL [Cymbalta] 60 mg PO HS 12/22/18 Torsemide [Demadex] 10 mg PO DAILY 12/22/18 Triamcinolone 0.1% Ointment [Kenalog 0.1% Ointment] 1 applic TOPICAL BID PRN 12/22/18 tiZANidine [Zanaflex] 2 mg PO Q8HR PRN 12/22/18 Gabapentin [Neurontin] 300 mg PO TID 02/13/19 Meloxicam [Mobic] 7.5 mg PO DAILY 02/13/19 buPROPion HCL [Wellbutrin XL] 300 mg PO DAILY 02/13/19 Controlled Substance Measures - Controlled Substance Measures Is patient prescribed a controlled substance at discharge?: No
== END | disposition home or self-care (01) ==
LOC: PNWHC3 13:31
PROVIDERS: ATTEND Student in an Organized Health Care Education/Training Program
DX: M47.812 Spondylosis without myelopathy or radiculopathy, cervical region (principal); M79.18 Myalgia, other site; M53.3 Sacrococcygeal disorders, not elsewhere classified; Z79.1 Long term (current) use of non-steroidal anti-inflammatories (NSAID); Z79.899 Other long term (current) drug therapy
CPT/HCPCS: 99211

== ENCOUNTER → 2019-08-12 | Outpatient (CLI) | payer MEDICARE, OTHER ==
--- NOTE | 2019-08-12 18:00 | MR ---
EXAMINATION TYPE: MR cervical spine wo con DATE OF EXAM: 08/12/2019 COMPARISON: None HISTORY: Neck pain TECHNIQUE: Multiplanar, multisequence images of the cervical spine were acquired. Cervical vertebra have normal alignment. There is degenerative disc space narrowing from C4 to C7 wit h some spurring of the endplates. There are small posterior disc herniations at C4-5 and C6-7. There is developmentally adequate spinal canal. The canal measures 9 mm at C4-5 and 8.5 mm at C6-7. Cervica l spinal cord has normal signal pattern. There is no edema. Brainstem is intact. There is no evidence of compression fracture. There is no cervical paraspinal mass. I see no focal bone destruction. IMPRESSION: Multilevel spondylotic changes from C4 to C7. Small posterior disc herniations. No spinal stenosis. N o fracture. There is right side neural foraminal impingement due to uncovertebral spurring at C4-5.
== END | disposition home or self-care (01) ==
LOC: RADMRIMAIN 11:59
PROVIDERS: ATTEND Student in an Organized Health Care Education/Training Program
DX: M50.221 Other cervical disc displacement at C4-C5 level (principal); M47.812 Spondylosis without myelopathy or radiculopathy, cervical region
CPT/HCPCS: 72141

== ENCOUNTER → 2019-08-30 | Outpatient (CLI) | payer MEDICARE, OTHER ==
[2019-08-30 11:41] VITALS: BP 121/84; PULSE 74; RESP 16
--- NOTE | 2019-08-30 12:44 | P.PAINPG ---
Subjective Progress Note Date: 08/30/19 this is a follow-up visit for this 59 years old female with a chronic history of severe low back pain with radiation to the lower extremity bilaterally, she is diagnosed with failed back surgery syndrome , lumbar spondylosis with facet arthropathy and sacroiliitis, aimlessly we have no longer of the medial branch lumbar area and bilateral sacroiliac joint steroid injection, which improved her low back pain significantly , she is complaining of increased neck pain which is increased with any neck movement and she had the new MRI of the cervical spine, and she is here today to discuss the results of the MRI, she denies any motor or sensory deficit she denies any change in bowel movement or urination, no fever or night sweats Objective - Vital Signs Vital signs: Vital Signs Temp Pulse 74 08/30/19 11:35 Resp 16 08/30/19 11:35 BP 121/84 08/30/19 11:35 Pulse Ox 97 08/30/19 11:35 - Exam Physical Examinations : -Constitutiona : Cooperative , not in acute distress . -HEENT : nech : supple , no Lymphadenopathy , normal thyroid size . : eyes : no ptosis , no icterus, no p hotophobia . : ENT : normal of hearing , normal oropharynx , no Thrush . - Respiratory : Chest clear to auscultations Bilaterally , no wheezing , no Rhonchi . - Cardiovascula : regular rate and rhythem , S1 , S2 , no S3 , no S4. - Gastrointestina : abdomen soft no tenderness , bowel sounds , no organomegally . - Genitourinary : Defferred . - neurologic : Cranial nerve II to XII intact , no focal neurological deffecit . -psychatric : alert , oriented X 3 , appropriate affect , intact judgment and insight . -Lymphatic : no Lymphadenopathy . - musculoskeltal : Cervical Spine motor stregnth in the deltoid and biceps, normal right side , normal Left side motor stregnth biceps and the wrist extensors normal right side ,normal left side . motor stregnth in the triceps muscle . normal Right side , normal Left side deep tendon reflexes normal at the biceps , normal at Brachioradialis , normal at triceps. cervical facet loading test: Positive Bilaterally Spurling test positive bilaterally. Neck distraction test positive bilaterally. Randi sign positive bilaterally. Lumber spine moter stegnth lower extremities ,thigh and legs 5/5 Right side , 5/5 Left side MRI of the cervical spine multilevel spondylitic changes C4 to C7 and there is a small posterior disc herniation at C4 5 and C6 7 Assessment and Plan Plan: Assessment and plan=1-lumbar spondylosis and lumbar facet arthropathy. 2-bilateral sacroiliitis. Low back pain improved after bilateral sacroiliac joint steroid injection and RFA medial branch blocks lumbar area 3-cervical spondylosis with cervical facet arthropathy. 4-cervical herniated disc disease C4 5 and C6 7 Patient will be good candidate to have diagnostic medial branch block cervical area C4, C5, C6 x2 and possible RFA . Patient given prescription refill for Mobic 7.5 mg daily dispense 30 with 2 refills, Neurontin 300 mg 3 times a day dispense 90 with 2 refills MAPS reviewed and it was appropriate Time with Patient: Less than 30 PQRS Measure Charge Sheet Measure #130: Documentation of Current Meds in Medical Chart: Patient's medications documented in chart Measure #226: Tobacco Use: Screen & Cessation Intervention: Pt not a tobacco user Measure #111: Pneumonia Vaccination: Pneumococcal vaccine administered or previously received Measure #47: Advance Care Plan: Advance care planning discussed & documented, pt chose/unable to give Measure #412: Opioid Treatment Agreement: Documented signed opioid trtmnt agreemnt min once during opioid trtmnt Measure #408: Opioid Therapy Follow-up Evaluation: Patient had f/u eval minimum every 3 months during opioid therapy Measure #317: Preventitive Care & Scrn High Bld Press & F/U: Normal blood pressure, f/u not required Measure #128: Body Mass Index (BMI) Screening & Follow-up: BMI documented ABOVE normal parameters - f/u documented Measure #131: Pain Assessment & Follow-up: Pain positive & plan documented, Follow-up scheduled Measure #431: Unhealthy Alcohol Use Preventative Care & Scrn: Patient not identified as an unhealthy alcohol user PQRS Narrative: Smoking Status Never smoker Narcotic Agreement Date Signed 12/29/18 Blood Pressure 121/84 Pain Intensity [Right Neck] 8 Scale Used Numeric (1 - 10) Hx Alcohol Use (MH) Yes: occasional Home Medications: Ambulatory Orders SUMAtriptan SUCCINATE [Imitrex] 100 mg PO BID PRN 01/07/15 Topiramate [Topamax] 50 mg PO BID 04/13/15 Flaxseed Oil 1,000 mg PO DAILY 10/21/18 Allergy Injection 1 dose SQ Q30D 11/23/18 Allergy Injection 1 dose SQ WE 11/23/18 Montelukast [Singulair] 10 mg PO HS 11/23/18 DULoxetine HCL [Cymbalta] 60 mg PO HS 12/22/18 Torsemide [Demadex] 10 mg PO DAILY 12/22/18 Triamcinolone 0.1% Ointment [Kenalog 0.1% Ointment] 1 applic TOPICAL BID PRN 12/22/18 tiZANidine [Zanaflex] 2 mg PO Q8HR PRN 12/22/18 buPROPion HCL [Wellbutrin XL] 300 mg PO DAILY 02/13/19 Gabapentin [Neurontin] 300 mg PO TID #90 cap 08/30/19 Meloxicam [Mobic] 7.5 mg PO DAILY PRN #30 tab 08/30/19 Controlled Substance Measures - Controlled Substance Measures Is patient prescribed a controlled substance at discharge?: Yes When asked, does pt state using other controlled substances?: No If prescribed controlled substance>3 days was MAPS reviewed?: Yes If Rx opioid, was Start Talking consent form obtained?: Yes If opioid is for acute pain is fill amount 7 days or less?: No Was information provided regarding opioid addiction?: Yes
== END | disposition home or self-care (01) ==
LOC: PNWHC3 11:21
PROVIDERS: ATTEND Specialist
DX: G89.29 Other chronic pain (principal); M47.816 Spondylosis without myelopathy or radiculopathy, lumbar region; M46.96 Unspecified inflammatory spondylopathy, lumbar region; M96.1 Postlaminectomy syndrome, not elsewhere classified; M46.1 Sacroiliitis, not elsewhere classified; M50.221 Other cervical disc displacement at C4-C5 level; M47.812 Spondylosis without myelopathy or radiculopathy, cervical region; M46.92 Unspecified inflammatory spondylopathy, cervical region; Z79.1 Long term (current) use of non-steroidal anti-inflammatories (NSAID); Z79.899 Other long term (current) drug therapy
CPT/HCPCS: 99211

== ENCOUNTER 2019-09-07 06:07 | Day surgery (SDC) | payer MEDICARE, OTHER ==
[2019-09-06 08:55] VITALS: BMI 34.2
[2019-09-07 06:27] VITALS: TEMP 97.8
[2019-09-07] MEDS ORDERED: LIDOCAINE 1% 20 ML VIAL (10MG/ML) FOR IV START INTRADERMA ONE (06:33)
[2019-09-07 07:48] VITALS: PULSE 78; RESP 16
[2019-09-07] MEDS ORDERED: IV FLUID CONTINUATION 1,000 ML IV ONE (07:49)
[2019-09-07 07:59] VITALS: BP 102/74
--- NOTE | 2019-09-07 08:25 | FL ---
EXAMINATION TYPE: FL guided pain mgmt statistic DATE OF EXAM: 09/07/2019 HISTORY: Pain 27sec fl time . 8 images submitted
--- NOTE | 2019-09-07 09:06 | P.PCN ---
Date of Procedure: 09/07/19 Procedure(s) Performed: PREOPERATIVE DIAGNOSIS: Cervical Spondylosis with Facet Arthropathy.without myelopathy POSTOPERATIVE DIAGNOSIS: Cervical Spondylosis, Facet Arthropathy. Without myelopathy PROCEDURES: [Bilateral ] Diagnostic C4, C5, C6 medial branch blocks for facets C4-5 and C56, with fluoroscopic guidance ANESTHESIA: Local with 1% lidocaine; IV sedation with Versed, sedation time 30 minutes Fluoroscopy was used for the procedure and images were saved in the radiology portion of the chart. EBL: Minimal PROCEDURE INDICATION: The patient with neck pain secondary to cervical arthropathy unresponsive to more conservative treatments. PROCEDURE DESCRIPTION / TECHNIQUE: The patient was seen and identified in the preoperative area. Risks, benefits, complications, and alternatives were discussed with the patient, the patient agreed to proceed with the procedure and signed the consent. IV was started. Vital signs remained stable throughout the procedure. Patient was taken to the OR and time out was completed. The patient was placed in the prone position on the procedure table. A pillow was placed under the patients chest to increase the cervical interlaminar space. The cervical area was prepped and draped in the usual sterile fashion. A timeout was performed. Vital signs were closely monitored during the procedure. Conscious sedation was used during the procedure to decrease patients anxiety. Using AP and contralateral oblique and cross-table lateral fluoroscopy, the centroid of the trapezoid of the first level was identified, marked, and localized with 1% lidocaine 0.2 ml at each level for skin and subcutaneous infiltration . Subsequently, a 25 G 3.5" Quinke spinal needle was advanced guided by fluoroscopy to the centroid of the trapezoid . [place] tip position was confirmed using lateral and contralateral oblique fluoroscopy.0.2 mL of Isovue-200 was injected at each level, revealing no intravascular uptake. Subsequently, 0.5 mL of 4% lidocaine was injected at each level. COMPLICATIONS: No acute complications. DISPOSITION / PLANS: The patient was placed in a supine position and transferred to the recovery area in a stable condition for observation and was discharged from the recovery room after meeting discharge criteria. Home discharge instruc tions given to the patient by the staff. The patient will follow up for repeat procedure in 2 weeks.
== END 2019-09-07 08:21 | disposition home or self-care (01) ==
LOC: ORPAIN 06:07
PROVIDERS: ATTEND Anesthesiology
DX: M47.812 Spondylosis without myelopathy or radiculopathy, cervical region (principal); F41.9 Anxiety disorder, unspecified; M96.1 Postlaminectomy syndrome, not elsewhere classified; M46.1 Sacroiliitis, not elsewhere classified; M50.223 Other cervical disc displacement at C6-C7 level; Z88.5 Allergy status to narcotic agent; Z88.8 Allergy status to other drugs, medicaments and biological substances; Z88.1 Allergy status to other antibiotic agents; Z79.899 Other long term (current) drug therapy
CPT/HCPCS: 64490; 64491; J2250; Q9966; 99152; 99153

== ENCOUNTER 2019-10-04 06:07 | Day surgery (SDC) | payer MEDICARE, OTHER ==
[2019-09-29 14:54] VITALS: BMI 33.8
[~2019-10-04 06:07] MED LIST changes: +BUPIVACAINE (PF) 0.5% 30 ML VIAL ONE; +MIDAZOLAM 2 MG/2 ML VIAL ONE; +fentaNYL (PF) 50 MCG/ML 2 ML AMP ONE; +methylPREDNISolone ACETATE 40 MG/ML 1 ML VIAL ONE
[2019-10-04 06:26] VITALS: TEMP 97.2
[2019-10-04] MEDS ORDERED: LIDOCAINE 1% 20 ML VIAL (10MG/ML) FOR IV START INTRADERMA ONE (06:32)
--- NOTE | 2019-10-04 07:45 | P.PCN ---
Date of Procedure: 10/04/19 Procedure(s) Performed: PREOPERATIVE DIAGNOSIS: Cervical Spondylosis with Facet Arthropathy.without myelopathy POSTOPERATIVE DIAGNOSIS: Cervical Spondylosis Facet Arthropathy. Without myelopathy PROCEDURES: Diagnostic bilateral C4 , C5 , and C6 medial branch blocks, with fluoroscopic guidance (fluoroscopy images available in radiology department ) ( to target the facet joint at C4- 5 , C5- 6 ) ANESTHESIA: Local with 1% lidocaine; moderate sedation with Versed. 2 mg , and fentanyl 100 micrograms EBL: Minimal PROCEDURE INDICATION: The patient with neck pain secondary to cervical arthropathy unresponsive to more conservative treatments. PROCEDURE DESCRIPTION / TECHNIQUE: The patient was seen and identified in the preoperative area. Risks, benefits, complications, and alternatives were discussed with the patient, the patient agreed to proceed with the procedure and signed the consent. IV was started. Vital signs remained stable throughout the procedure. Patient was taken to the OR and time out was completed. The patient was placed in the prone position on the procedure table. A pillow was placed under the patients chest to increase the cervical interlaminar space. The cervical area was prepped and draped in the usual sterile fashion. Critical pause was taken. Vital signs were closely monitored during the procedure. Conscious sedation was used during the procedure to decrease patients anxiety. Using cross-table lateral fluoroscopy, the centroid of the trapezoid of right C4 , C5 and C6, was identified, marked, and localized with 1% lidocaine 1 ml at each level for skin and Sub Q infiltrations . Subsequently, a 25 G 3 spinal needle was advanced guided by fluoroscopy to the centroid of the trapezoid of Right C3, C4 , C5, C6 . [place] tip position was confirmed at the centroid of the trapezoids of Right C4 , C5 ,C6 with anteroposterior fluoroscopy. Subsequently, 1.5 ml of preservative-free Ropivacaine 0.5% mixed with Depo- Medrol 20 mg and half ml of the mixture was injected after negative aspiration for blood and CSF. [place] was then removed intact the same procedure was repeated at the left C4 , C5 , and C6 levels. COMPLICATIONS: No acute complications. DISPOSITION / PLANS: The patient was placed in a supine position and transferred to the recovery area in a stable condition for observation and was discharged from the recovery room after meeting discharge criteria. Home discharge instructions given to the patient by the staff. The patient was reexamined prior to discharge. The patient will schedule a follow up in the clinic in 2-4 weeks.
[2019-10-04] MEDS ORDERED: IV FLUID CONTINUATION 1,000 ML IV ONE ×2 (07:50)
[2019-10-04 07:55] VITALS: RESP 18
[2019-10-04 08:13] VITALS: BP 109/71; PULSE 79
--- NOTE | 2019-10-04 08:56 | FL ---
EXAMINATION TYPE: FL guided pain mgmt statistic DATE OF EXAM: 10/04/2019 FLUOROSCOPY Fluoroscopy time of 29 seconds was used during bilateral cervical facet blocks. 4 image/s document/s the procedure.
== END 2019-10-04 08:25 | disposition home or self-care (01) ==
LOC: ORPAIN 06:07
PROVIDERS: ATTEND Specialist
DX: M47.812 Spondylosis without myelopathy or radiculopathy, cervical region (principal); Z88.5 Allergy status to narcotic agent; Z88.8 Allergy status to other drugs, medicaments and biological substances; Z90.710 Acquired absence of both cervix and uterus
CPT/HCPCS: 64490; 64491; J2250; J1030; J3010; 99152; 99153

== ENCOUNTER → 2019-10-17 | Outpatient (CLI) | payer MEDICARE, OTHER ==
[2019-10-17 13:25] VITALS: RESP 16
[2019-10-17 14:04] VITALS: BP 107/72; PULSE 83
--- NOTE | 2019-10-17 14:40 | P.PAINPG ---
Subjective Progress Note Date: 10/17/19 this is a follow-up visit for this 59 years old female with a chronic history of severe and chronic neck pain and she is diagnosed with cervical spondylosis , status post diagnostic medial branch block cervical area , she had negative result after each block , she reported that her VAS was 8/10 before the first block and dropped to 5/10 , and she had similar results after the second diagnostic medial branch block , and she is complaining of severe neck pain with radiation to the upper extremity associated with numbness and tingling sensation she is complaining of increased neck pain which is increased with any neck movement, she denies any motor or sensory deficit she denies any change in bowel movement or urination, no fever or night sweats She continued to use Mobic 7.5 mg daily Zanaflex 2 mg 3 times a day and Neurontin 300 mg 3 times a day without any benefit Objective - Vital Signs Vital signs: Vital Signs Temp Pulse 83 10/17/19 14:03 Resp 16 10/17/19 14:03 BP 107/72 10/17/19 14:03 Pulse Ox 96 10/17/19 14:03 - Exam Physical Examinations : -Constitutiona : Cooperative , not in acute distress . -HEENT : nech : supple , no Lymphadenopathy , normal thyroid size . : eyes : no ptosis , no icterus, no photophobia . - neurologic : Cranial nerve II to XII intact , no focal neurological deffecit . -psychatric : alert , oriented X 3 , appropriate affect , intact judgment and insight . -Lymphatic : no Lymphadenopathy . - musculoskeltal : Cervical Spine motor stregnth in the deltoid and biceps, normal right side , normal Left side motor stregnth biceps and the wrist extensors normal right side ,normal left side . motor stregnth in the triceps muscle . normal Right side , normal Left side deep tendon reflexes normal at the biceps , normal at Brachioradialis , normal at triceps. cervical facet loading test: Positive Bilaterally Spurling test positive bilaterally. Neck distraction test positive bilaterally. Randi sign positive bilaterally. Lumber spine moter stegnth lower extremities ,thigh and legs 5/5 Right side , 5/5 Left side Assessment and Plan Plan: Assessment and plan=1-chronic severe neck pain secondary to cervical spondylosis and cervical facet arthropathy and cervical degenerative disc disease she had negative results after diagnostic medial branch block, She will be good candidate to have cervical epidural steroid injection at C7-T1. We'll discontinue Mobic started patient on Motrin 600 mg 3 times a day, discontinue Zanaflex and start patient on Flexeril 10 mg Tid Increase Neurontin to 400 mg 3 times a day Time with Patient: Less than 30 PQRS Measure Charge Sheet Measure #130: Documentation of Current Meds in Medical Chart: Patient's medications documented in chart Measure #226: Tobacco Use: Screen & Cessation Intervention: Pt not a tobacco user Measure #111: Pneumonia Vaccination: Pneumococcal vaccine administered or previously received Measure #47: Advance Care Plan: Advance care planning discussed & documented, pt chose/unable to give Measure #412: Opioid Treatment Agreement: Documented signed opioid trtmnt agreemnt min once during opioid trtmnt Measure #408: Opioid Therapy Follow-up Evaluation: Patient had f/u eval minimum every 3 months during opioid therapy Measure #317: Preventitive Care & Scrn High Bld Press & F/U: Normal blood pressure, f/u not required Measure #128: Body Mass Index (BMI) Screening & Follow-up: BMI documented ABOVE normal parameters - f/u documented Measure #131: Pain Assessment & Follow-up: Pain positive & plan documented, Follow-up scheduled Measure #431: Unhealthy Alcohol Use Preventative Care & Scrn: Patient not identified as an unhealthy alcohol user PQRS Narrative: Smoking Status Never smoker Narcotic Agreement Date Signed 12/29/18 Blood Pressure 107/72 Pain Intensity [Upper Back] 6 Scale Used Numeric (1 - 10) Hx Alcohol Use (MH) Yes: occasional Home Medications: Ambulatory Orders SUMAtriptan SUCCINATE [Imitrex] 100 mg PO BID PRN 01/07/15 Topiramate [Topamax] 50 mg PO BID 01/07/15 Flaxseed Oil 1,000 mg PO DAILY 10/21/18 Allergy Injection 1 dose SQ Q30D 11/23/18 Allergy Injection 1 dose SQ WE 11/23/18 Montelukast [Singulair] 10 mg PO HS 11/23/18 DULoxetine HCL [Cymbalta] 60 mg PO HS 12/22/18 Torsemide [Demadex] 10 mg PO DAILY 12/22/18 Triamcinolone 0.1% Ointment [Kenalog 0.1% Ointment] 1 applic TOPICAL BID PRN 12/22/18 buPROPion HCL [Wellbutrin XL] 300 mg PO DAILY 02/13/19 Cyclobenzaprine [Flexeril] 10 mg PO HS PRN #90 tab 10/17/19 Gabapentin [Neurontin] 400 mg PO TID #90 cap 10/17/19 Ibuprofen [Motrin] 600 mg PO Q8HR PRN #90 tab 10/17/19 Controlled Substance Measures - Controlled Substance Measures Is patient prescribed a controlled substance at discharge?: Yes When asked, does pt state using other controlled substances?: No If prescribed controlled substance>3 days was MAPS reviewed?: Yes If Rx opioid, was Start Talking consent form obtained?: Yes If opioid is for acute pain is fill amount 7 days or less?: No Was information provided regarding opioid addiction?: Yes
== END | disposition home or self-care (01) ==
LOC: PNWHC3 12:19
PROVIDERS: ATTEND Specialist
DX: G89.29 Other chronic pain (principal); M50.30 Other cervical disc degeneration, unspecified cervical region; M47.812 Spondylosis without myelopathy or radiculopathy, cervical region; M46.92 Unspecified inflammatory spondylopathy, cervical region; Z79.1 Long term (current) use of non-steroidal anti-inflammatories (NSAID); Z79.899 Other long term (current) drug therapy
CPT/HCPCS: 99211

== ENCOUNTER 2019-10-25 05:38 | Day surgery (SDC) | payer MEDICARE, OTHER ==
[2019-10-23 10:27] VITALS: BMI 33.8
[~2019-10-25 05:38] MED LIST changes: -BUPIVACAINE (PF) 0.5% 30 ML VIAL ONE; +DEXAMETHASONE SOD PHOSPHATE 10 MG/ML 1 ML VIAL ONE; +IOPAMIDOL M200 10 ML VIAL ONE; -LACTATED RINGERS 1,000 ML IV SCH; -methylPREDNISolone ACETATE 40 MG/ML 1 ML VIAL ONE
[2019-10-25 06:11] VITALS: RESP 16; TEMP 97.6
[2019-10-25] MEDS ORDERED: LIDOCAINE 1% 20 ML VIAL (10MG/ML) FOR IV START INTRADERMA ONE (06:15)
[2019-10-25] MEDS: LACTATED RINGERS 1,000 ML IV SCH ×2 (06:15→06:55)
[2019-10-25] MEDS ORDERED: IV FLUID CONTINUATION 1,000 ML IV ONE ×2 (07:19)
[2019-10-25 07:57] VITALS: BP 94/52; PULSE 78
--- NOTE | 2019-10-25 08:39 | P.PCN ---
Date of Procedure: 10/25/19 Procedure(s) Performed: . PROCEDURE 1. Cervical epidural steroid injection under fluoroscopic guidance, C7-T1 (fluoroscopy images available in the radiology department ) 2. Cervical epidurogram. PREOPERATIVE DIAGNOSIS: 1- Cervical Degenerative Disc Diseases 2-cervical spondylosis with cervical Facet arthropathy without myelopathy POSTOPERATIVE DIAGNOSIS: : 1- Cervical Degenerative Disc Diseases , 2-cervical spondylosis with cervical Facet arthropathy without myelopathy ANESTHESIA: moderate sedation, with Versed 2 mg and Fentanyl 50 mcg. EBL 0 PROCEDURE INDICATION: The patient with neck pain and radiculitis unresponsive to conservative treatment consents for procedure. PROCEDURE DESCRIPTION / TECHNIQUE: The patient was seen and identified in the preoperative area. Risks, benefits, complications, including but not limited to infections ,bleeding , allergic reactions to the medications ,and not complete pain releife, and alternatives were discussed with the patient, the patient agreed to proceed with the procedure and signed the consent. Patient was taken to the OR and time out was completed. The patient was placed in the prone position on the procedure table. A pillow was placed under the patients chest to increase the cervical interlaminar space. The cervical area was prepped and draped in the usual sterile fashion. Vital signs were closely monitored during the procedure. Conscious sedation was used during the procedure to decrease patients anxiety. Using anterior-posterior fluoroscopy, the C7-T1 interlaminar space was identified and the skin over this site was marked and then infiltrated with 1% lidocaine subcutaneously. Subsequently, a 20-gauge 3-1/2-inch Tuohy epidural needle was inserted and advanced toward the epidural space by means of the ``hanging-drop technique and guided by AP and lateral fluoroscopy. The correct needle position in the epidural space was verified with the injection of 2 mL of the water soluble contrast dye Isovue-200 and observing an excellent epidurogram with the epidural spread of the dye, after negative aspiration for blood and CSF and in the absence of paresthesias. Again after negative aspiration, mixture containing 20 mg Dexamethasone and 2 ml of preservative- free normal saline injected and a washout of epidurogram was seen. Needle was withdrawn intact, skin was cleansed, and bandages were applied. Complications= none. Disposition= patient was placed in supine position and transferred to the rec overy room area in stable condition and there was no evidence of upper or lower extremity motor or sensory deficit after the procedure patient was discharged from recovery room after discharge criteria met and home discharge instructions was given by the staff and patient will follow with the pain clinic in 2-4 weeks
--- NOTE | 2019-10-25 09:04 | FL ---
EXAMINATION TYPE: FL guided pain mgmt statistic DATE OF EXAM: 10/25/2019 FLUOROSCOPY Fluoroscopy time of 2 seconds was used during cervical epidural steroid injection. 1 image/s documen t/s the procedure.
== END 2019-10-25 08:21 | disposition home or self-care (01) ==
LOC: ORPAIN 05:38
PROVIDERS: ATTEND Specialist
DX: M47.812 Spondylosis without myelopathy or radiculopathy, cervical region (principal)
CPT/HCPCS: 62321; J2250; J1100; J3010; Q9966; 99152

== ENCOUNTER 2019-11-08 07:27 | Day surgery (SDC) | payer MEDICARE, OTHER ==
[2019-11-07 09:58] VITALS: BMI 34.0
[~2019-11-08 07:27] MED LIST changes: -DEXAMETHASONE SOD PHOSPHATE 10 MG/ML 1 ML VIAL ONE; +LACTATED RINGERS 1,000 ML IV SCH; +methylPREDNISolone ACETATE 40 MG/ML 1 ML VIAL ONE
[2019-11-08 07:43] VITALS: TEMP 97.8
--- NOTE | 2019-11-08 08:33 | P.GSHP ---
History of Present Illness H&P Date: 11/08/19 this is 59 years old female with a chronic history of severe and chronic neck pain and she is diagnosed with cervical spondylosis , status post diagnostic medial branch block cervical area , she had negative result after each block , she reported that her VAS was 8/10 before the first block and dropped to 5/10 , and she had similar results after the second diagnostic medial branch block , and she is complaining of severe neck pain with radiation to the upper extremity associated with numbness and tingling sensation she is complaining of increased neck pain which is increased with any neck movement, she denies any motor or sensory deficit she denies any change in bowel movement or urination, no fever or night sweats, she is in today to have repeat cervical epidural steroid injection Past Medical History Past Medical History: Cancer, Hyperlipidemia, Pneumonia Additional Past Medical History / Comment(s): HX MIGRAINES, LEFT BREAST CA 2012, VARICOSE VEINS RT LEG, Pneumonia 2017, chronic lower back pain. History of Any Multi-Drug Resistant Organisms: None Reported Past Surgical History: Back Surgery, Breast Surgery, Hysterectomy Additional Past Surgical History / Comment(s): LEFT MASTECTOMY 2012 WITH RADIATION. PAIN CLINIC- INJECTIONS. Past Anesthesia/Blood Transfusion Reactions: Motion Sickness Additional Past Anesthesia/Blood Transfusion Reaction / Comment(s): . Smoking Status: Never smoker - Past Family History Father Family Medical History: No Reported History Additional Family Medical History / Comment(s): HYPOTHYROID FAMILY HX Mother Family Medical History: No Reported History Medications and Allergies Home Medications Medication Instructions Recorded Confirmed Type SUMAtriptan SUCCINATE [Imitrex] 100 mg PO BID PRN 01/07/15 11/07/19 History Topiramate [Topamax] 100 mg PO BID 01/07/15 11/07/19 History Flaxseed Oil 1,000 mg PO DAILY 10/21/18 11/07/19 History Allergy Injection 1 dose SQ Q30D 11/23/18 11/07/19 History Allergy Injection 1 dose SQ WE 11/23/18 11/07/19 History Montelukast [Singulair] 10 mg PO HS 11/23/18 11/07/19 History DULoxetine HCL [Cymbalta] 60 mg PO HS 12/22/18 11/07/19 History Torsemide [Demadex] 10 mg PO DAILY 12/22/18 11/07/19 History Triamcinolone 0.1% Ointment 1 applic TOPICAL BID PRN 12/22/18 11/07/19 History [Kenalog 0.1% Ointment] buPROPion HCL [Wellbutrin XL] 300 mg PO DAILY 02/13/19 11/07/19 History Cyclobenzaprine [Flexeril] 10 mg PO HS PRN #90 tab 10/17/19 11/07/19 Rx Gabapentin [Neurontin] 400 mg PO TID #90 cap 10/17/19 11/07/19 Rx Ibuprofen [Motrin] 600 mg PO Q8HR PRN #90 tab 10/17/19 11/07/19 Rx Allergies Allergy/AdvReac Type Severity Reaction Status Date / Time Quinolones Allergy Severe Rash/Hives Verified 11/08/19 07:43 alprazolam [From Xanax] Allergy MAKES VERY Verified 11/08/19 07:43 HYPER codeine AdvReac Intermediate Nausea & Verified 11/08/19 07:43 Vomiting Surgical - Exam Vital Signs Temp Pulse Resp BP Pulse Ox 97.8 F 81 14 121/67 97 11/08/19 07:42 11/08/19 07:42 11/08/19 07:42 11/08/19 07:42 11/08/19 07:42 -Constitutiona : Cooperative , not in acute distress .. - Respiratory : Chest clear to auscultations Bilaterally , no wheezing , no Rhonchi . - Cardiovascula : regular rate and rhythem , S1 , S2 , no S3 , no S4. - Gastrointestina : abdomen soft no tenderness , bowel sounds , no organomegally - neurologic : Cranial nerve II to XII intact , no focal neurological deffecit . -psychatric : alert , oriented X 3 , appropriate affect , intact judgment and insight . - musculoskeltal : Cervical Spine motor stregnth in the deltoid and biceps, normal right side , normal Left side Lumber spine moter stegnth lower extremities ,thigh and legs 5/5 Right side , 5/5 Left side Fabere test= positive Right , and positive LT . Assessment and Plan Plan: Assessment and plan= cervical degenerative disc disease Cervical spondylosis with cervical facet arthropathy. Patient here today for cervical epidural steroid injections under fluoroscopy guidance Time with Patient: Less than 30
--- NOTE | 2019-11-08 08:45 | P.PCN ---
Date of Procedure: 11/08/19 Procedure(s) Performed: PROCEDURE 1. Cervical epidural steroid injection under fluoroscopic guidance, C7-T1 (fluoroscopy images available in the radiology department ) 2. Cervical epidurogram. PREOPERATIVE DIAGNOSIS: 1- Cervical Degenerative Disc Diseases 2-cervical spondylosis with cervical Facet arthropathy without myelopathy POSTOPERATIVE DIAGNOSIS: : 1- Cervical Degenerative Disc Diseases , 2-cervical spondylosis with cervical Facet arthropathy without myelopathy ANESTHESIA: moderate sedation, with Versed 2 mg and Fentanyl 50 mcg. EBL 0 PROCEDURE INDICATION: The patient with neck pain and radiculitis unresponsive to conservative treatment consents for procedure. PROCEDURE DESCRIPTION / TECHNIQUE: The patient was seen and identified in the preoperative area. Risks, benefits, complications, including but not limited to infections ,bleeding , allergic reactions to the medications ,and not complete pain releife, and alternatives were discussed with the patient, the patient agreed to proceed with the procedure and signed the consent. Patient was taken to the OR and time out was completed. The patient was placed in the prone position on the procedure table. A pillow was placed under the patients chest to increase the cervical interlaminar space. The cervical area was prepped and draped in the usual sterile fashion. Vital signs were closely monitored during the procedure. Conscious sedation was used during the procedure to decrease patients anxiety. Using anterior-posterior fluoroscopy, the C7-T1 interlaminar space was identified and the skin over this site was marked and then infiltrated with 1% lidocaine subcutaneously. Subsequently, a 20-gauge 3-1/2-inch Tuohy epidural needle was inserted and advanced toward the epidural space by means of the ``hanging-drop technique and guided by AP and lateral fluoroscopy. The correct needle position in the epidural space was verified with the injection of 2 mL of the water soluble contrast dye Isovue-200 and observing an excellent epidurogram with the epidural spread of the dye, after negative aspiration for blood and CSF and in the absence of paresthesias. Again after negative aspiration, mixture containing 20 mg Dexamethasone and 2 ml of preservative- free normal saline injected and a washout of epidurogram was seen. Needle was withdrawn intact, skin was cleansed, and bandages were applied. Complications= none. Disposition= patient was placed in supine position and transferred to the recovery room area in stable condition and there was no evidence of upper or lower extremity motor or sensory deficit after the procedure patient was discharged from recovery room after discharge criteria met and home discharge instructions was given by the staff and patient will follow with the pain clinic in 2-4 weeks
[2019-11-08] MEDS ORDERED: IV FLUID CONTINUATION 1,000 ML IV ONE (08:51)
[2019-11-08 09:06] VITALS: RESP 16
[2019-11-08 09:07] VITALS: BP 106/63; PULSE 87
--- NOTE | 2019-11-08 11:26 | FL ---
Fluoroscopy HISTORY: Pain 4 seconds fluoroscopy time supplied to the referring clinician. 2 intraoperative C-arm images docume nt the procedure. See dictated report from anesthesia.
== END 2019-11-08 09:33 | disposition home or self-care (01) ==
LOC: ORPAIN 07:27
PROVIDERS: ATTEND Specialist
DX: M50.30 Other cervical disc degeneration, unspecified cervical region (principal); M47.812 Spondylosis without myelopathy or radiculopathy, cervical region; E78.5 Hyperlipidemia, unspecified; I83.91 Asymptomatic varicose veins of right lower extremity; G89.29 Other chronic pain; M54.5 Low back pain; Z79.1 Long term (current) use of non-steroidal anti-inflammatories (NSAID); Z79.899 Other long term (current) drug therapy; Z79.52 Long term (current) use of systemic steroids; Z85.3 Personal history of malignant neoplasm of breast; Z87.01 Personal history of pneumonia (recurrent); Z86.69 Personal history of other diseases of the nervous system and sense organs; Z98.890 Other specified postprocedural states; Z90.710 Acquired absence of both cervix and uterus; Z90.12 Acquired absence of left breast and nipple; Z92.3 Personal history of irradiation; Z87.898 Personal history of other specified conditions; Z88.1 Allergy status to other antibiotic agents; Z88.8 Allergy status to other drugs, medicaments and biological substances; Z88.5 Allergy status to narcotic agent; Z83.49 Family history of other endocrine, nutritional and metabolic diseases
CPT/HCPCS: 62321; J2250; J1030; J3010; Q9966

== ENCOUNTER → 2019-11-27 | Outpatient (CLI) | payer MEDICARE, OTHER ==
[2019-11-27 12:35] VITALS: BP 128/86; PULSE 80; RESP 16
--- NOTE | 2019-11-28 14:11 | P.PAINPG ---
Subjective Progress Note Date: 11/27/19 This is a follow-up visit for this 59 year old female with a chronic history of severe and chronic neck pain and she is diagnosed with cervical spondylosis , cervical degenerative disc disease, she had minimal response to cervical medial branch block, she last underwent cervical epidural steroid injection on 10/25/2019 and 11/08/2019. She returns today for follow-up. She reports only a few days of relief following each procedure. She is complaining of severe neck pain with radiation to the bilateral upper extremity, in nondermatomal distribution, neck pain is worse than arm pain, pain is rated as 7/10, pain is increased with any neck movement, better with resting her neck. She endorses numbness and tingling in all 5 fingers, right greater than left. She has tried physical therapy in the past, with no significant benefit. She continues to do neck exercises on a daily basis. She continued to use Motrin 600 mg 3 times a day, Flexeril 10 mg 3 times a day, and Neurontin 400 mg 3 times a day , she denies side effects from these medications, however the medications are not helping control her pain. Review of systems is negative for chest pain, shortness of breath, new onset weakness, numbness/tingling, abdominal pain, malaise, fever, night sweats, chills, homicidal or suicidal ideation, or bowel or bladder incontinence. Objective - Exam Vitals: Reviewed in EMR GENERAL: Well appearing, in no acute distress PSYCH: Mood and affect is appropriate. Awake, alert, and oriented SKIN: Skin color, texture, turgor normal, no rashes or lesions HEENT: Normocephalic, atraumatic. EOM intact CV: No pedal edema RESP: Respirations are unlabored, no audible wheezing GI: Abdomen non-distended MUSCULOSKELETAL: Bilateral upper extremity strength is normal and symmetric. No atrophy or tone abnormalities are noted. Neck: Tenderness to palpation over the cervical paraspinous muscles, with palpable trigger points, right worse than left. Spurling negative, Hamlin's sign negative, positive cervical facet loading. No pain with neck flexion, ex tension, or lateral flexion. No obvious deformity or signs of trauma. Normal cervical lordotic curve and normal cervical spine range of motion Extremities: Peripheral joint ROM is full and pain free without obvious instability or laxity in all four extremities. No edema or skin discolorations noted. NEUR: Bilateral upper extremity coordination and muscle stretch reflexes are physiologic and symmetric. No loss of sensation is noted. Assessment and Plan Plan: Assessment and plan=1-chronic severe neck pain secondary to cervical spondylosis and cervical facet arthropathy, cervical myofascial pain syndrome and cervical degenerative disc disease she had negative results after diagnostic medial branch block, She underwent cervical epidural steroid injection at C7-T1 2, with no significant long-lasting benefit. We will schedule trigger point injections to right cervical paraspinals, rhomboids, trapezius Medication management: Patient was instructed to wean the Flexeril gradually as this does not seem to be helping. She is instructed to take 1 tablet daily for 1 week and then stop. No further changes to medications today. Time with Patient: Less than 30 PQRS Measure Charge Sheet Measure #130: Documentation of Current Meds in Medical Chart: Patient's medications documented in chart Measure #226: Tobacco Use: Screen & Cessation Intervention: Pt not a tobacco user Measure #111: Pneumonia Vaccination: Pneumococcal vaccine administered or previously received Measure #47: Advance Care Plan: Advance care planning discussed & documented, pt chose/unable to give Measure #412: Opioid Treatment Agreement: Documented signed opioid trtmnt agreemnt min once during opioid trtmnt Measure #408: Opioid Therapy Follow-up Evaluation: Patient had f/u eval minimum every 3 months during opioid therapy Measure #317: Preventitive Care & Scrn High Bld Press & F/U: Normal blood pressure, f/u not required Measure #128: Body Mass Index (BMI) Screening & Follow-up: BMI documented ABOVE normal parameters - f/u documented Measure #131: Pain Assessment & Follow-up: Pain positive & plan documented, Follow-up scheduled Measure #431: Unhealthy Alcohol Use Preventative Care & Scrn: Patient not identified as an unhealthy alcohol user PQRS Measure Charge Sheet PQRS Narrative: Smoking Status Never smoker Narcotic Agreement Date Signed 12/29/18 Pain Intensity [Upper Back] 7 Scale Used Numeric (1 - 10) Hx Alcohol Use (MH) Yes: occasional Home Medications: Ambulatory Orders SUMAtriptan SUCCINATE [Imitrex] 100 mg PO BID PRN 01/07/15 Topiramate [Topamax] 100 mg PO BID 01/07/15 Flaxseed Oil 1,000 mg PO DAILY 10/21/18 Allergy Injection 1 dose SQ Q30D 11/23/18 Allergy Injection 1 dose SQ WE 11/23/18 Montelukast [Singulair] 10 mg PO HS 11/23/18 DULoxetine HCL [Cymbalta] 60 mg PO HS 12/22/18 Torsemide [Demadex] 10 mg PO DAILY 12/22/18 Triamcinolone 0.1% Ointment [Kenalog 0.1% Ointment] 1 applic TOPICAL BID PRN 12/22/18 buPROPion HCL [Wellbutrin XL] 300 mg PO DAILY 02/13/19 Cyclobenzaprine [Flexeril] 10 mg PO HS PRN #90 tab 10/17/19 Gabapentin [Neurontin] 400 mg PO TID #90 cap 10/17/19 Ibuprofen [Motrin] 600 mg PO Q8HR PRN #90 tab 10/17/19 Controlled Substance Measures - Controlled Substance Measures Is patient prescribed a controlled substance at discharge?: No
== END | disposition home or self-care (01) ==
LOC: PNWHC3 12:00
PROVIDERS: ATTEND Anesthesiology
DX: G89.29 Other chronic pain (principal); M50.30 Other cervical disc degeneration, unspecified cervical region; M47.812 Spondylosis without myelopathy or radiculopathy, cervical region; M79.18 Myalgia, other site; Z79.899 Other long term (current) drug therapy; Z79.1 Long term (current) use of non-steroidal anti-inflammatories (NSAID)
CPT/HCPCS: 99211

== ENCOUNTER 2019-12-05 05:45 | Day surgery (SDC) | payer MEDICARE, OTHER ==
[2019-12-04 11:18] VITALS: BMI 33.8
[~2019-12-05 05:45] MED LIST changes: -IOPAMIDOL M200 10 ML VIAL ONE; -MIDAZOLAM 2 MG/2 ML VIAL ONE; -fentaNYL (PF) 50 MCG/ML 2 ML AMP ONE; -methylPREDNISolone ACETATE 40 MG/ML 1 ML VIAL ONE
[2019-12-05 06:29] VITALS: TEMP 99
--- NOTE | 2019-12-05 07:07 | P.GSHP ---
History of Present Illness H&P Date: 12/05/19 This is a 59 years old female with chronic severe neck pain secondary to cervical spondylosis and cervical facet arthropathy, cervical myofascial pain syndrome and cervical degenerative disc disease, she is here today to have trigger point injection cervical area Past Medical History Past Medical History: Cancer, Hyperlipidemia, Pneumonia Additional Past Medical History / Comment(s): HX MIGRAINES, LEFT BREAST CA 2012, VARICOSE VEINS RT LEG, Pneumonia 2018, chronic lower back pain. History of Any Multi-Drug Resistant Organisms: None Reported Past Surgical History: Back Surgery, Breast Surgery, Hysterectomy Additional Past Surgical History / Comment(s): LEFT MASTECTOMY 2012 WITH RADIATION. PAIN CLINIC- INJECTIONS. Past Anesthesia/Blood Transfusion Reactions: Motion Sickness Additional Past Anesthesia/Blood Transfusion Reaction / Comment(s): . Smoking Status: Never smoker - Past Family History Father Family Medical History: No Reported History Additional Family Medical History / Comment(s): HYPOTHYROID FAMILY HX Mother Family Medical History: No Reported History Medications and Allergies Home Medications Medication Instructions Recorded Confirmed Type SUMAtriptan SUCCINATE [Imitrex] 100 mg PO BID PRN 01/07/15 12/05/19 History Topiramate [Topamax] 100 mg PO BID 01/07/15 12/05/19 History Flaxseed Oil 1,000 mg PO DAILY 10/21/18 12/05/19 History Allergy Injection 1 dose SQ Q30D 11/23/18 12/05/19 History Allergy Injection 1 dose SQ WE 11/23/18 12/05/19 History Montelukast [Singulair] 10 mg PO HS 11/23/18 12/05/19 History DULoxetine HCL [Cymbalta] 60 mg PO HS 12/22/18 12/05/19 History Torsemide [Demadex] 10 mg PO DAILY 12/22/18 12/05/19 History Triamcinolone 0.1% Ointment 1 applic TOPICAL BID PRN 12/22/18 12/05/19 History [Kenalog 0.1% Ointment] buPROPion HCL [Wellbutrin XL] 300 mg PO DAILY 02/13/19 12/05/19 History Cyclobenzaprine [Flexeril] 10 mg PO HS PRN #90 tab 10/17/19 12/05/19 Rx Gabapentin [Neurontin] 400 mg PO TID #90 cap 10/17/19 12/05/19 Rx Ibuprofen [Motrin] 600 mg PO Q8HR PRN #90 tab 10/17/19 12/05/19 Rx Allergies Allergy/AdvReac Type Severity Reaction Status Date / Time Quinolones Allergy Severe Rash/Hives Verified 12/05/19 06:16 alprazolam [From Xanax] Allergy MAKES VERY Verified 12/05/19 06:16 HYPER codeine AdvReac Intermediate Nausea & Verified 12/05/19 06:16 Vomiting Surgical - Exam Vital Signs Temp Pulse Resp BP Pulse Ox 99 F 73 20 96/64 94 L 12/05/19 06:27 12/05/19 06:27 12/05/19 06:27 12/05/19 06:27 12/05/19 06:27 Vitals: Reviewed in EMR GENERAL: Well appearing, in no acute distress PSYCH: Mood and affect is appropriate. Awake, alert, and oriented SKIN: Skin color, texture, turgor normal, no rashes or lesions HEENT: Normocephalic, atraumatic. EOM intact CV: No pedal edema RESP: Respirations are unlabored, no audible wheezing GI: Abdomen non-distended MUSCULOSKELETAL: Bilateral upper extremity strength is normal and symmetric. No atrophy or tone abnormalities are noted. Neck: Tenderness to palpation over the cervical paraspinous muscles, with palpable trigger points, right worse than left. Spurling negative, Hamlin's sign negative, positive cervical facet loading. No pain with neck flexion, extension, or lateral flexion. No obvious deformity or signs of trauma. Normal cervical lordotic curve and normal cervical spine range of motion Extremities: Peripheral joint ROM is full and pain free without obvious instability or laxity in all four extremities. No edema or skin discolorations noted. NEUR: Bilateral upper extremity coordination and muscle stretch reflexes are physiologic and symmetric. No loss of sensation is noted. Assessment and Plan Plan: Assessment and plan=1-cervical spondylosis with cervical facet arthropathy. 2-cervical degenerative disc disease. 3-myofascial pain syndrome cervical area. Patient could benefit from trigger point injections cervical paraspinal muscles ,trapezius, rhomboid muscles Time with Patient: Less than 30
[2019-12-05] MEDS ORDERED: methylPREDNISolone ACETATE 40 MG/ML 1 ML VIAL ONE (07:10)
[2019-12-05] MEDS ORDERED: ROPIVACAINE 5MG/ML 20ML VIAL ONE (07:10)
[2019-12-05] MEDS ORDERED: LACTATED RINGERS 1,000 ML IV ONE (07:21)
[2019-12-05] MEDS ORDERED: IV FLUID CONTINUATION 1,000 ML IV ONE (07:21)
--- NOTE | 2019-12-05 07:27 | P.PCN ---
Date of Procedure: 12/05/19 Procedure(s) Performed: Preoperative diagnoses=1-myofascial pain syndrome ,right cervical paraspinal muscles, right trapezius muscle, right rhomboid muscle. 2-cervical spondylosis with cervical facet arthropathy without myelopathy. 3-cervical degenerative disc disease Postoperative diagnoses= same as preop diagnosis. Procedure= trigger point injections right side cervical paraspinal muscles, right trapezius muscle, right rhomboid muscle (total of 5 trigger point injected ) Anesthesia=none . Condition= stable. Complications=none. Indication and description of the procedure= this is 59 years old female with a chronic history of severe neck pain diagnosed with cervical degenerative disc disease cervical spondylosis and cervical myofascial pain syndrome, and she is here to have trigger point injections, and the preop holding area procedure risk and benefits discussed with the patient she agreed with the preceding patient taken to the operating room placed in sitting position , the cervical area was prepped with chlorhexidine 3. Under sterile technique, each of the trigger point that is marked and in the preop holding area was injected with 2,5 ml of the block solution, using 25-gauge needle, injections done after negative as piration and there was no paresthesia during the injection, there was total of 5 trigger point injected in the right side cervical paraspinal muscles, right trapezius muscles and right rhomboid muscles, total of 12.5 ML of proparacaine was mixed with the 40 mg of Depo-Medrol and 2-1/2 of ML of the mixture was injected at each trigger point after negative aspiration
[2019-12-05 07:30] VITALS: RESP 16
[2019-12-05 07:40] VITALS: BP 120/81; PULSE 83
== END 2019-12-05 07:45 | disposition home or self-care (01) ==
LOC: ORPAIN 05:45
PROVIDERS: ATTEND Specialist
DX: G89.29 Other chronic pain (principal); M79.18 Myalgia, other site; M47.812 Spondylosis without myelopathy or radiculopathy, cervical region; M50.30 Other cervical disc degeneration, unspecified cervical region; R21 Rash and other nonspecific skin eruption; Z78.0 Asymptomatic menopausal state; Z90.710 Acquired absence of both cervix and uterus; Z88.8 Allergy status to other drugs, medicaments and biological substances; Z88.5 Allergy status to narcotic agent; Z88.1 Allergy status to other antibiotic agents
CPT/HCPCS: 20553; J1030; J2795

== ENCOUNTER → 2020-03-20 | Outpatient (CLI) | payer MEDICARE, OTHER ==
[2020-03-20 11:29] VITALS: BP 110/76; PULSE 80; RESP 16
--- NOTE | 2020-03-20 11:56 | P.PAINPG ---
Subjective Progress Note Date: 03/20/20 this is a follow-up visit for this 58 years old female with a chronic history of severe low back pain with radiation to the lower extremity bilaterally, she is diagnosed with failed back surgery syndrome and lumbar area, and lumbar spondylosis with lumbar facet arthropathy , previously we have done radiof requency ablation of the medial branch lumbar area at L2, L3, L4, (she had fusion at L5-S1 ) provided her with excellent pain relief for more than a year , currently she is complaining complaining of severe pain and bilateral buttock pain, increased with any activity, she denies any motor or sensory deficit she denies any change in bowel movement or urination, no fever or night sweats, also patient had some neck pain which is improved after cervical epidural steroid injection and trigger point injection in the cervical area, currently on her pain in the low back area, she continued to use the Neurontin 400 mg 3 times a day, and the Motrin 600 mg every 8 hours when necessary and Flexeril 10 mg daily at bedtime she denies any side effect of the medication she denies any excessive drowsiness or sleepiness Objective - Vital Signs Vital signs: Vital Signs Temp Pulse 80 03/20/20 11:25 Resp 16 03/20/20 11:25 BP 110/76 03/20/20 11:25 Pulse Ox 96 03/20/20 11:25 - Exam Physical Examinations : -Constitutiona : Cooperative , not in acute distress . -HEENT : nech : supple , no Lymphadenopathy , normal thyroid size . : eyes : no ptosis , no icterus, no photophobia . - neurologic : Cranial nerve II to XII intact , no focal neurological deffecit . -psychatric : alert , oriented X 3 , appropriate affect , intact judgment and insight . -Lymphatic : no Lymphadenopathy . - musculoskeltal : Cervical Spine motor stregnth in the deltoid and biceps, normal right side , normal Left side motor stregnth biceps and the wrist extensors normal right side ,normal left side . motor stregnth in the triceps muscle . normal Right side , normal Left side Lumber spine moter stegnth lower extremities ,thigh and legs 4/5 Right side , 5/5 Left side deep tendon reflexes : normal Knee Jerk , normal ankle Jerk lumber facet Loading Test =positive Right , positive Left Range of motion of the lumbar spine Flexion 30 degrees, extension 10 degrees strait leg raising test = positive at 60 degree Fabere test= positive Right , and positive LT . Sever tenderness over the Sacroiliac joint on the Right , and Left sides Assessment and Plan Plan: Assessment and plan=1-lumbar spondylosis with lumbar facet arthropathy. 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 Patient had good results after the RFA of the medial branch lumbar area at L2, L3, L4 , patient could benefit from repeat RFA 3-cervical spondylosis with cervical facet arthropathy. 4-cervical degenerative disc disease. 5-myofascial pain syndrome and cervical area Neck pain improved after cervical epidural steroid injection and trigger point injections cervical area. Prescription refill for Neurontin 400 mg 3 times a day dispense 90 with 2 refills, Motrin 600 mg 3 times a day dispense 90 with 2 refills Flexeril 10 mg daily at bedtime dispense 30 with 2 refills Time with Patient: Less than 30 PQRS Measure Charge Sheet Measure #130: Documentation of Current Meds in Medical Chart: Patient's medications documented in chart Measure #226: Tobacco Use: Screen & Cessation Intervention: Pt screened for tobacco use AND intervention given Measure #111: Pneumonia Vaccination: Pneumococcal vaccine administered or previously received Measure #47: Advance Care Plan: Advance care planning discussed & documented, pt chose/unable to give Measure #412: Opioid Treatment Agreement: Documented signed opioid trtmnt agreemnt min once during opioid trtmnt Measure #408: Opioid Therapy Follow-up Evaluation: Patient had f/u eval minimum every 3 months during opioid therapy Measure #317: Preventitive Care & Scrn High Bld Press & F/U: Normal blood pressure, f/u not required Measure #128: Body Mass Index (BMI) Screening & Follow-up: BMI documented ABOVE normal parameters - f/u documented Measure #131: Pain Assessment & Follow-up: Pain positive & plan documented, Follow-up scheduled Measure #431: Unhealthy Alcohol Use Preventative Care & Scrn: Patient not identified as an unhealthy alcohol user PQRS Narrative: Smoking Status Never smoker Narcotic Agreement Date Signed 12/29/18 Blood Pressure 110/76 Pain Intensity [Back] 7 Scale Used Numeric (1 - 10) Hx Alcohol Use (MH) Yes: occasional Home Medications: Ambulatory Orders SUMAtriptan SUCCINATE [Imitrex] 100 mg PO BID PRN 01/07/15 Topiramate [Topamax] 100 mg PO BID 01/07/15 Flaxseed Oil 1,000 mg PO DAILY 10/21/18 Allergy Injection 1 dose SQ Q30D 11/23/18 Allergy Injection 1 dose SQ WE 11/23/18 Montelukast [Singulair] 10 mg PO HS 11/23/18 DULoxetine HCL [Cymbalta] 60 mg PO HS 12/22/18 Torsemide [Demadex] 10 mg PO DAILY 12/22/18 Triamcinolone 0.1% Ointment [Kenalog 0.1% Ointment] 1 applic TOPICAL BID PRN 12/22/18 buPROPion HCL [Wellbutrin XL] 300 mg PO DAILY 02/13/19 Cyclobenzaprine [Flexeril] 10 mg PO HS PRN #90 tab 03/20/20 Gabapentin [Neurontin] 400 mg PO TID #90 cap 03/20/20 Ibuprofen [Motrin] 600 mg PO Q8HR PRN #90 tab 03/20/20 Controlled Substance Measures - Controlled Substance Measures Is patient prescribed a controlled substance at discharge?: Yes When asked, does pt state using other controlled substances?: No If prescribed controlled substance>3 days was MAPS reviewed?: Yes If Rx opioid, was Start Talking consent form obtained?: Yes If opioid is for acute pain is fill amount 7 days or less?: No Was information provided regarding opioid addiction?: Yes
== END | disposition home or self-care (01) ==
LOC: PNWHC3 11:06
PROVIDERS: ATTEND Specialist
DX: G89.29 Other chronic pain (principal); M47.816 Spondylosis without myelopathy or radiculopathy, lumbar region; M47.812 Spondylosis without myelopathy or radiculopathy, cervical region; M50.30 Other cervical disc degeneration, unspecified cervical region; M79.18 Myalgia, other site; Z79.891 Long term (current) use of opiate analgesic; Z79.899 Other long term (current) drug therapy
CPT/HCPCS: 99211

== ENCOUNTER 2020-04-04 09:05 | Day surgery (SDC) | payer MEDICARE, OTHER ==
[2020-04-01 15:19] VITALS: BMI 33.8
[2020-04-04] MEDS ORDERED: fentaNYL (PF) 50 MCG/ML 2 ML AMP ONE (09:45)
[2020-04-04] MEDS ORDERED: ROPIVACAINE 5MG/ML 20ML VIAL ONE (09:45)
[2020-04-04] MEDS ORDERED: MIDAZOLAM 2 MG/2 ML VIAL ONE (09:45)
[2020-04-04] MEDS ORDERED: methylPREDNISolone ACETATE 40 MG/ML 1 ML VIAL ONE (09:45)
--- NOTE | 2020-04-04 10:20 | P.PCN ---
Date of Procedure: 04/04/20 Procedure(s) Performed: PREOPERATIVE DIAGNOSIS: 1-Lumbar Spondylosis with Facet Arthropathy without myelopathy. 2- Lumber failed back surgery syndrome POSTOPERATIVE DIAGNOSIS: 1- Lumbar Spondylosis with Facet Arthropathy without myelopathy. 2- Lumber failed back surgery syndrome PROCEDURES : Bilateral Radiofrequency thermocoagulation, L2 , L3 , L4 medial branch, with fluoroscopic guidance (fluoroscopy images available in the radiology department) ( to denervate the facet joint at L3-4 , L4-5 levels ) ANESTHESIA: Moderate sedation with intravenous versed 2 mg and fentaneyl 100 mcg, and local infiltration with Ropivacaine 0.5 % . EBL: Minimal PROCEDURE INDICATION: The patient with low back pain secondary to lumbar facet arthropathy who had more than 50% relief of her pain with previous diagnostic lumbar medial branch block with bupivacaine. PROCEDURE DESCRIPTION / TECHNIQUE: The patient was seen and identified in the preoperative area. Risks, benefits, complications, including but not limited to risk of infection ,bleeding , allergic reactions to the medications and no complete pain releife , and alternatives were discussed with the patient, the patient agreed to proceed with the procedure and signed the consent. IV was started. Vital signs remained stable throughout the procedure. Patient was taken to the OR and time out was completed. The patient was placed in the prone position on the procedure table. The lumber area was prepped and draped in the usual sterile fashion. . Vital signs were closely monitored during the procedure .IV sedation was used during the procedure to decrease patients anxiety. Using AP and then oblique fluoroscopy, the ``eye of the Joseph dog corresponding to the connection between the superior and transverse articular processes of right L2 , L3, L4, were identified, marked, and localized with 1% l idocaine. Subsequently, a 18 [id number] radiofrequency cannula with a 10-mm active tip was advanced guided by fluoroscopy to each of the``eyes of the Joseph dog at right L2 ,L3, L4 . Each site then underwent sensory testing at 50 Hz and 0 to 1 volt and motor testing at 2.5 Hz and 0 to 3 volt with local stimulation, but no radicular symptoms down the legs. Thereafter each sites underwent radiofrequency thermocoagulation at 80 degrees celsius for 90 seconds after injecting 0.5 ml of PF Ropivacaine 1ml, then after the thermocoagulation done , 1 ml of the block solution containing Depo-Medrol 20 mg and 3 ml of Ropivacaine 0.5% was injected at the right L2 , L3 , L4 , , levels after negative aspiration of CSF and blood and with no paresthesias. Cannulas were retracted while injecting lidocaine 1% until the needle is out. The same procedure was repeated at the level of Left L2 ,L3, L4, levels. At the end of the procedure, the skin was cleansed and bandages were applied. COMPLICATIONS: No acute complications. DISPOSITION / PLANS: The patient was placed in a supine position and transferred to the recovery area in a stable condition for observation and was discharged from the recovery room after meeting discharge criteria. Home discharge instructions given to the patient by the staff. The patient was reexamined prior to discharge. The patient will schedule a follow up in the clinic in 2-4 weeks. note = patient had fusion at L5-S1
[2020-04-04] MEDS ORDERED: IV FLUID CONTINUATION 1,000 ML IV ONE (10:21)
--- NOTE | 2020-04-04 10:25 | FL ---
Fluoroscopy HISTORY: Pain 17 seconds fluoroscopy time supplied to the referring clinician. 7 intraoperative C-arm images docum ent the procedure. See dictated report from anesthesia.
[2020-04-04] MEDS ORDERED: KETOROLAC 30 MG/ML 1 ML VIAL IVP ONE (10:27)
[2020-04-04] MEDS ORDERED: KETOROLAC 30 MG/ML 1 ML VIAL ONE (10:34)
[2020-04-05 08:11] VITALS: BP 121/66; PULSE 76; RESP 15; TEMP 99.1
== END 2020-04-04 11:17 | disposition home or self-care (01) ==
LOC: ORPAIN 09:05
PROVIDERS: ATTEND Specialist
DX: M47.816 Spondylosis without myelopathy or radiculopathy, lumbar region (principal); M96.1 Postlaminectomy syndrome, not elsewhere classified; Z88.1 Allergy status to other antibiotic agents; Z88.8 Allergy status to other drugs, medicaments and biological substances; Z88.5 Allergy status to narcotic agent; Z78.0 Asymptomatic menopausal state; Z90.710 Acquired absence of both cervix and uterus
CPT/HCPCS: 64635; 64636; J2250; J1030; J3010; J1885; J2795; 99152; 99153

== ENCOUNTER → 2020-04-18 | Outpatient (CLI) | payer MEDICARE, OTHER ==
[2020-04-18 14:14] VITALS: BP 125/82; PULSE 78; RESP 16
--- NOTE | 2020-04-19 08:09 | P.PAINPG ---
Subjective Progress Note Date: 04/18/20 this is a follow-up visit for this 60 year old female with a chronic history of severe low back pain with radiation to the lower extremity bilaterally, she is diagnosed with failed back surgery syndrome and lumbar area, and lumbar spondylosis with lumbar facet arthropathy , recently we have done bilateral radiofrequency ablation of the medial branch lumbar area at L2, L3, L4, (she had fusion at L5-S1 ) . Returns today for follow-up. She reports good ongoing pain relief from this procedure, pain score is down to 5/10, she is very happy with this. She continues to have some right lower extremity numbness, which is chronic. She is also complaining of cramping pain in her lower extremities. She continues to use the Neurontin 400 mg 3 times a day, and the Motrin 600 mg every 8 hours when necessary and Flexeril 10 mg daily at bedtime she denies any side effect of the medication she denies any excessive drowsiness or sleepiness Review of systems is negative for chest pain, shortness of breath, changes in vision, changes in hearing, new onset weakness, abdominal pain, diarrhea, extreme fatigue, malaise, fever, skin changes, homicidal or suicidal ideation, or bowel or bladder incontinence. Objective Physical exam: Vitals: Reviewed in EMR GENERAL: Well appearing, in no acute distress PSYCH: Mood and affect is appropriate. Awake, alert, and oriented SKIN: Skin color, texture, turgor normal, no rashes or lesions HEENT: Normocephalic, atraumatic. EOM intact CV: No pedal edema RESP: Respirations are unlabored, no audible wheezing GI: Abdomen non-distended MUSCULOSKELETAL: Bilateral lower extremity strength is normal and symmetric. No atrophy or tone abnormalities are noted. Lumbar spine: Straight leg raising in the sitting position is negative for radicular pain. Tenderness to palpation over the lumbar spine and paraspinous muscles bilaterally. Positive for pain with facet loading Extremities: Peripheral joint ROM is full and pain free without obvious instability or laxity in all four extremities. No edema or skin discolorations noted. Gait: Gait is normal NEUR: Bilateral lower extremity coordination and muscle stretch reflexes are physiologic and symmetric. Negative clonus bilaterally. No loss of sensation is noted. Assessment and Plan Plan: Assessment and plan=1-lumbar spondylosis with lumbar facet arthropathy. 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 Patient had good results after the RFA of the medial branch lumbar area at L2, L3, L4 ,done recently 3-cervical spondylosis with cervical facet arthropathy. 4-cervical degenerative disc disease. 5-myofascial pain syndrome and cervical area Neck pain improved after cervical epidural steroid injection and trigger point injections cervical area. Medications were not refilled today as patient had recent medication refill. She was advised to take [id number] magnesium Glycinate for muscle cramps She was counseled on the importance of continued back exercises Follow-up: For medication management in the clinic in May PQRS Measure Charge Sheet Measure #130: Documentation of Current Meds in Medical Chart: Patient's medications documented in chart Measure #226: Tobacco Use: Screen & Cessation Intervention: Pt does not use tobacco products Measure #111: Pneumonia Vaccination: Pneumococcal vaccine administered or previously received Measure #47: Advance Care Plan: Advance care planning discussed & documented, pt chose/unable to give Measure #412: Opioid Treatment Agreement: Documented signed opioid trtmnt agreemnt min once during opioid trtmnt Measure #408: Opioid Therapy Follow-up Evaluation: Patient had f/u eval minimum every 3 months during opioid therapy Measure #317: Preventitive Care & Scrn High Bld Press & F/U: Normal blood pressure, f/u not required Measure #128: Body Mass Index (BMI) Screening & Follow-up: BMI documented ABOVE normal parameters - f/u documented Measure #131: Pain Assessment & Follow-up: Pain positive & plan documented, Follow-up scheduled Measure #431: Unhealthy Alcohol Use Preventative Care & Scrn: Patient not identified as an unhealthy alcohol user Objective - Vital Signs Vital signs: Intake & Output 04/17/20 04/18/20 04/18/20 18:59 06:59 18:59 Weight 83.461 kg PQRS Measure Charge Sheet PQRS Narrative: Smoking Status Never smoker Narcotic Agreement Date Signed 12/29/18 Pain Intensity [Lower Back] 5 Hx Alcohol Use (MH) Yes: occasional Home Medications: Ambulatory Orders SUMAtriptan SUCCINATE [Imitrex] 100 mg PO BID PRN 01/07/15 Topiramate [Topamax] 100 mg PO TID 01/07/15 Flaxseed Oil 1,000 mg PO HS 10/21/18 Allergy Injection 1 dose SQ Q30D 11/23/18 Allergy Injection 1 dose SQ WE 11/23/18 Montelukast [Singulair] 10 mg PO HS 11/23/18 DULoxetine HCL [Cymbalta] 60 mg PO HS 12/22/18 Torsemide [Demadex] 10 mg PO DAILY 12/22/18 Triamcinolone 0.1% Ointment [Kenalog 0.1% Ointment] 1 applic TOPICAL BID PRN 12/22/18 buPROPion HCL [Wellbutrin XL] 300 mg PO DAILY 02/13/19 Cyclobenzaprine [Flexeril] 10 mg PO HS PRN #90 tab 03/20/20 Gabapentin [Neurontin] 400 mg PO TID #90 cap 03/20/20 Ibuprofen [Motrin] 600 mg PO Q8HR PRN #90 tab 03/20/20 Controlled Substance Measures - Controlled Substance Measures Is patient prescribed a controlled substance at discharge?: No
== END | disposition home or self-care (01) ==
LOC: PNWHC3 13:31
PROVIDERS: ATTEND Anesthesiology
DX: M50.30 Other cervical disc degeneration, unspecified cervical region (principal); M47.812 Spondylosis without myelopathy or radiculopathy, cervical region; M46.92 Unspecified inflammatory spondylopathy, cervical region; M47.816 Spondylosis without myelopathy or radiculopathy, lumbar region; M46.96 Unspecified inflammatory spondylopathy, lumbar region; M96.1 Postlaminectomy syndrome, not elsewhere classified; M79.18 Myalgia, other site; Z79.899 Other long term (current) drug therapy; Z79.891 Long term (current) use of opiate analgesic
CPT/HCPCS: 99211

== ENCOUNTER → 2020-06-12 | Outpatient (CLI) | payer MEDICARE, OTHER ==
[2020-06-12 08:33] VITALS: TEMP 97.6
--- NOTE | 2020-06-12 08:34 | P.PN ---
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 The patient received lumbar medial branch RFA above her fusion level and also cervical epidural steroid injection. The patient's pain has been well-controlled with a combination of oral indications and interventional pain procedures from time to time. The patient is doing well today with no changes from baseline. Her pain is relatively under control. She does have chronic mild weakness in the right lower extremity. She still uses Neurontin and Flexeril but she does not need any prescriptions today. Patient denies new-onset weakness, bowel/bladder incontinence, or any other signs or symptoms of cauda equina syndrome. There are no signs of acute intoxication, and no indications of medication diversion or overuse. In addition to above, 13-point review of systems is also negative for chest pain, shortness of breath, changes in vision, changes in hearing, new onset weakness, abdominal pain, diarrhea, extreme fatigue, malaise, fever, skin changes, homicidal or suicidal ideation, or bowel or bladder incontinence. Vital Signs: Reviewed in EMR Gen: AAOx3, NAD HEENT: PERRLA,hearing grossly normal Pulm: resp unlabored Heart: Regular Neck: supple, trachea midline Neuro exam of the lower extremities: Decreased muscle strength to 4 out of 5 in the right lower extremity for knee flexion and extension and hip flexion. S Neuro: CN II-XII grossly intact, Imaging: Reviewed in EMR/chart Assessment: Lumbar postlaminectomy pain syndrome Cervical spondylosis without myelopathy Obesity Plan: 1. Explanation: Opioid and psychological risk scores were reviewed. Diagnoses, prognoses, and multiple treatment options including but not limited to physical therapy, interventional therapies, adjuvant medical therapies, narcotic medication therapies, and surgery were discussed with the patient and all questions were answered to the patient's satisfaction. 2. Opioid agreement: Signed with the patient and the patient is warned not to use opioids while driving or before driving and not to combine opioids with benzodiazepines or alcohol. 3. Counseling: The patient was counseled extensively on SMOKING CESSATION, BODY MASS INDEX, EXERCISE. Specifically, the patient was instructed regarding the importance of smoking cessation, obesity, and exercise in the context of both chronic pain and overall health. 4. Procedures: None for now 5. Consultations: None 6. Investigations: None 7. Medications: The patient has enough of her medications for this visit 8. Disposition: Return to clinic as needed 9. Maps were reviewed and were appropriate. PQRS Measure Charge Sheet Measure #130: Documentation of Current Meds in Medical Chart: Patient's medications documented in chart Measure #226: Tobacco Use: Screen & Cessation Intervention: Pt does not use tobacco products Measure #111: Pneumonia Vaccination: Pneumococcal vaccine administered or previously received Measure #47: Advance Care Plan: Advance care planning discussed & documented, pt chose/unable to give Measure #412: Opioid Treatment Agreement: Documented signed opioid trtmnt agreemnt min once during opioid trtmnt Measure #408: Opioid Therapy Follow-up Evaluation: Patient had f/u eval minimum every 3 months during opioid therapy Measure #317: Preventitive Care & Scrn High Bld Press & F/U: Normal blood pressure, f/u not required Measure #128: Body Mass Index (BMI) Screening & Follow-up: BMI documented ABOVE normal parameters - f/u documented Measure #131: Pain Assessment & Follow-up: Pain positive & plan documented, Follow-up scheduled Measure #431: Unhealthy Alcohol Use Preventative Care & Scrn: Patient not identified as an unhealthy alcohol user
[2020-06-12 09:11] VITALS: BP 114/76; PULSE 75; RESP 16
== END | disposition home or self-care (01) ==
LOC: PNWHC3 08:18
PROVIDERS: ATTEND Anesthesiology
DX: M96.1 Postlaminectomy syndrome, not elsewhere classified (principal); M47.812 Spondylosis without myelopathy or radiculopathy, cervical region; E66.9 Obesity, unspecified
CPT/HCPCS: 99211